=== PATIENT | female | born 1960 | race Two or more races ===

== ENCOUNTER → 2017-05-05 | Outpatient (CLI) | payer BC ==
[~2017-05-05] MED LIST: ACET500C
== END | disposition home or self-care (01) ==
LOC: LAB 11:04
PROVIDERS: ATTEND Obstetrics & Gynecology
DX: R19.00 Intra-abdominal and pelvic swelling, mass and lump, unspecified site (principal)
CPT/HCPCS: 86304; 87086

== ENCOUNTER 2020-09-24 12:53 | Day surgery (SDC) | payer BC ==
[~2020-09-24] VITALS: Ht 162.6 cm; Wt 77.1 kg
[~2020-09-24 12:53] MED LIST changes: -ACET500C; +ATOR20TA50 PO; +CHOL20007 PO; +MULTCAP45 PO; +VITA400T4 PO; +VITA80009 PO
[2020-09-24] MEDS ORDERED: ceFAZolin 1GM/50ML 100 ML IV ONE (13:06)
[2020-09-24] MEDS ORDERED: LIDOCAINE 1%-Mpf/Epinephrine 1:200,000 ONE (15:25)
[2020-09-24] MEDS ORDERED: BUPIVACAINE 0.25% INJ 50ML VIAL ONE (15:25)
[2020-09-24] MEDS ORDERED: NEOSTIGMINE 1 MG/ML INJ (10mg/10ML VIAL) IV ONE (15:29)
[2020-09-24] MEDS ORDERED: GLYCOPYRROLATE 0.2 MG/ML 1ML VIAL IV ONE (15:29)
[2020-09-24] MEDS ORDERED: ROCURONIUM 10MG/ML 10ML VIAL IV ONE (15:29)
[2020-09-24] MEDS ORDERED: fentaNYL CITRATE 100 MCG/2 ML VL ONE (15:32)
[2020-09-24] MEDS ORDERED: MIDAZOLAM HCL 2MG/2ML 2ml VIAL (1mg/ml) ONE (15:32)
[2020-09-24] MEDS ORDERED: MEPERIDINE HCL (50 MG/ML) 1 ML VIAL ONE (15:32)
[2020-09-24] MEDS ORDERED: ONDANSETRON HCL 4 MG/2 ML VIAL ONE (16:02)
[2020-09-24] MEDS ORDERED: DexAMETHasone SOD PHOS 10MG/1ML VIAL INJ ONE (16:02)
[2020-09-24] MEDS ORDERED: PROPOFOL 10 MG/ML 20 ML IV ONE (16:02)
[2020-09-24] MEDS ORDERED: ePHEDrine SULFATE 50 MG/ML AMP IV PRN (16:15)
[2020-09-24] MEDS ORDERED: METOCLOPRAMIDE HCL 5MG/ml INJ 2ml VIAL IV PRN (16:15)
[2020-09-24] MEDS ORDERED: MORPHINE SULFATE 4 MG/ML SYR/VIAL IV PRN (16:15)
[2020-09-24] MEDS ORDERED: MIDAZOLAM HCL 2MG/2ML 2ml VIAL (1mg/ml) IV PRN (16:15)
[2020-09-24] MEDS ORDERED: ACCU-CHEK COMFORT CURVE STRIP VI ONE (16:15)
[2020-09-24] MEDS ORDERED: LABETALOL HCL 5 MG/ML 4ML SYRINGE IV PRN (16:15)
[2020-09-24] MEDS ORDERED: ONDANSETRON HCL 4 MG/2 ML VIAL IV PRN (16:15)
[2020-09-24] MEDS: HYDROmorphone HCL 2 MG/ML VL IV PRN ×2 (17:12→17:24)
[2020-09-24 17:25] VITALS: BP 136/80
== END 2020-09-24 17:55 | disposition home or self-care (01) ==
LOC: SUR 12:53 → UNDOADMIN 12:53 → OVERFLOW 12:53 → EDSTATUS 15:00 → SUR 17:55 → UNDODISIN 17:55
PROVIDERS: ATTEND Obstetrics & Gynecology
DX: N95.8 Other specified menopausal and perimenopausal disorders (principal); K44.9 Diaphragmatic hernia without obstruction or gangrene; E78.00 Pure hypercholesterolemia, unspecified; E11.9 Type 2 diabetes mellitus without complications; E03.9 Hypothyroidism, unspecified; I10 Essential (primary) hypertension; Z68.29 Body mass index [BMI] 29.0-29.9, adult; Z20.822 Contact with and (suspected) exposure to COVID-19; Z98.890 Other specified postprocedural states; Z79.82 Long term (current) use of aspirin; Z79.899 Other long term (current) drug therapy; Z88.6 Allergy status to analgesic agent
CPT/HCPCS: 58661; 86850; 86900; 86901; 88305; J0690; J1100; J1170; J2001; J2175; J2250; J2405; J2704; J3010; J3490; U0003; G0378

== ENCOUNTER 2024-01-14 15:23 | Inpatient (IN) | payer OTHER ==
[~2024-01-14] VITALS: Ht 162.6 cm; Wt 80.5 kg
[2024-01-14 21:00] VITALS: BP 131/78; PULSE 80; RESP 18; TEMP 98.2; O2SAT 94
[2024-01-14 21:47] LABS: Basophils # (auto) 0 10 ^3/uL (0-0.2); Basophils % (auto) 0.5 % (0.0-2.0); Eosinophils # (auto) 0.1 10 ^3/uL (0-0.8); Hematocrit 42.9 % (36.0-46.0); Hemoglobin 14.4 g/dL (12.2-16.2); Lymphocytes # (auto) 2.8 10 ^3/uL (0.4-5.4); Lymphocytes % (auto) 33.1 % (10.0-50.0); Mean Corpuscular Hemoglobin 31.6 pg (28.0-32.0); Mean Corpuscular Hgb Conc. 33.6 g/dL (32.0-36.0); Monocytes # (auto) 0.6 10 ^3/uL (0-1.3); Monocytes % (auto) 7.5 % (0.0-12.0); Neutrophils # (auto) 4.9 10 ^3/uL (1.6-8.6); Neutrophils % (auto) 57.9 % (37.0-80.0); Nucleated Red Blood Cells % 0.2 %; Red Blood Cells 4.57 10^6/uL (4.0-5.20); Red Cell Distribution Width 13.5 % (11.8-14.3); White Blood Cell 8.4 10^3/uL (4.4-10.8)
[2024-01-14 21:57] VITALS: BP 121/78; PULSE 80; RESP 18; TEMP 98.2; O2SAT 94
[2024-01-14 22:02] LABS: Alanine Aminotransferase 16 U/L (7-40); Albumin 3.9 g/dL (3.2-4.8); Alkaline Phosphatase 59 U/L (46-116); Anion Gap 4 (5-15); Aspartate Aminotransferase 12 U/L (13-40); BUN/Creatinine Ratio 12.8 (10.0-20.0); Bilirubin, Total 0.4 mg/dL (0.2-1.0); Blood Urea Nitrogen 10 mg/dL (9-23); Calcium 8.7 mg/dL (8.7-10.4); Carbon Dioxide 29 mmol/L (20-30); Chloride 108 mmol/L (98-107); Glucose 83 mg/dL (74-106); Potassium 3.7 mmol/L (3.5-5.1); Sodium 141 mmol/L (136-145); Total Protein 6.1 g/dL (5.7-8.2)
[2024-01-14] MEDS ORDERED: ATOR-507 PO (22:23)
[2024-01-14] MEDS ORDERED: SUCR1TAB31 OR (22:23)
[2024-01-14] MEDS ORDERED: PANT1INJ3 IV (22:23)
[2024-01-14] MEDS ORDERED: LEVO50TA7 PO (22:23)
[2024-01-14] MEDS ORDERED: ATOR40TA52 PO (22:23)
[2024-01-14] MEDS: PNEUMOCOCCAL VACC POLYS 25 MCG/0.5 ML VIAL IM ONE (22:30)
[2024-01-15] VITALS (10 sets, daily range): BP systolic 123–142; BP diastolic 64–85; PULSE 60–83; RESP 15–22; TEMP 97.9–99; O2SAT 92–100
[2024-01-15] MEDS ORDERED: DOCUSATE SOD 100 MG CAP PO PRN (00:45)
[2024-01-15] MEDS ORDERED: ONDANSETRON HCL 4 MG/2 ML VIAL IV PRN (00:45)
[2024-01-15] MEDS ORDERED: MECLIZINE HCL 25 MG TAB PO PRN (00:45)
[2024-01-15] MEDS ORDERED: HYDROcodone-ACET 5/325MG TAB PO PRN (00:45)
[2024-01-15] MEDS ORDERED: MORPHINE SULFATE INJ 2 MG/ml SYRG IV PRN (00:45)
[2024-01-15] MEDS ORDERED: ACETAMINOPHEN 325 MG TAB PO PRN (00:45)
[2024-01-15] MEDS ORDERED: hydrALAZINE HCL 20 MG/ML VL IV PRN (00:45)
[2024-01-15] MEDS ORDERED: NITROGLYCERIN 0.4 MG SL TAB SL PRN (00:45)
[2024-01-15] MEDS: LEVOTHYROXINE SODIUM 50 MCG TAB PO SCH (05:29)
[2024-01-15] MEDS: SUCRALFATE 1 GM TAB PO SCH (05:29)
[2024-01-15] MEDS: SODIUM CHLOR 0.9% PF (SALINE LOCK) 10ML VIAL/SYR IV SCH (05:30)
[2024-01-15 06:31] LABS: Basophils # (auto) 0 10 ^3/uL (0-0.2); Basophils % (auto) 0.3 % (0.0-2.0); Eosinophils # (auto) 0.1 10 ^3/uL (0-0.8); Eosinophils % (auto) 1.6 % (0.0-7.0); Hematocrit 42.7 % (36.0-46.0); Hemoglobin 14.3 g/dL (12.2-16.2); Lymphocytes # (auto) 2.5 10 ^3/uL (0.4-5.4); Lymphocytes % (auto) 36.9 % (10.0-50.0); Mean Corpuscular Hgb Conc. 33.6 g/dL (32.0-36.0); Mean Corpuscular Volume 95.1 fL (80.0-100.0); Monocytes # (auto) 0.5 10 ^3/uL (0-1.3); Monocytes % (auto) 6.8 % (0.0-12.0); Neutrophils # (auto) 3.6 10 ^3/uL (1.6-8.6); Neutrophils % (auto) 54.4 % (37.0-80.0); Red Blood Cells 4.49 10^6/uL (4.0-5.20); Red Cell Distribution Width 13.6 % (11.8-14.3); White Blood Cell 6.7 10^3/uL (4.4-10.8)
[2024-01-15 06:48] LABS: Alanine Aminotransferase 17 U/L (7-40); Albumin 3.9 g/dL (3.2-4.8); Alkaline Phosphatase 57 U/L (46-116); Anion Gap 3 (5-15); Aspartate Aminotransferase 12 U/L (13-40); BUN/Creatinine Ratio 12.3 (10.0-20.0); Blood Urea Nitrogen 10 mg/dL (9-23); Calcium 8.8 mg/dL (8.7-10.4); Carbon Dioxide 30 mmol/L (20-30); Chloride 107 mmol/L (98-107); Glucose 90 mg/dL (74-106); Potassium 3.5 mmol/L (3.5-5.1); Sodium 140 mmol/L (136-145)
[2024-01-15 06:49] LABS: Bilirubin, Total 0.6 mg/dL (0.2-1.0)
[2024-01-15 07:27] LABS: Urine Bacteria FEW /hpf (None Seen); Urine Blood Negative /uL (Negative); Urine Budding Yeast OCCASIONAL /hpf (None Seen); Urine Clarity Clear (Clear); Urine Color Light-Yellow (Yellow); Urine Mucus FEW (None Seen); Urine Protein, UAD Negative (Negative); Urine Specific Gravity 1.025 (1.001-1.035); Urine Urobilinogen Normal (Negative); Urine WBC 3 /hpf (0 - 5); Urine pH 6.5 (5.0-9.0)
[2024-01-15] MEDS: CLOPIDOGREL BISULFATE 75 MG TAB PO SCH (09:05)
[2024-01-15] MEDS: PANTOPRAZOLE 40 MG/10 ML VIAL INJ IV SCH (09:05)
[2024-01-15 14:48] LABS: INR 1.04 (0.9-1.15)
[2024-01-15] MEDS: LIDOCAINE VISCOUS 2% 15ML UD ONE (16:14)
[2024-01-15] MEDS: fentaNYL CITRATE 100 MCG/2 ML VL ONE (16:14)
[2024-01-15] MEDS: diphenhdrAMINE HCL 50 MG/1 ML VL ONE (16:14)
[2024-01-15] MEDS: MIDAZOLAM HCL 5 MG/ML-1ML VIAL ONE (16:14)
[2024-01-15] MEDS ORDERED: SODIUM CHLORIDE LOCK 10 ML ONE (16:48)
[2024-01-15] MEDS: PANTOPRAZOLE 40 MG TAB PO SCH (17:30)
[2024-01-15] MEDS: ATORVASTATIN 20 MG TAB PO SCH (20:50)
[2024-01-16 01:00] VITALS: BP 128/64; PULSE 71; RESP 20; TEMP 98.3; O2SAT 93
[2024-01-16 05:00] VITALS: BP 122/70; PULSE 63; RESP 20; TEMP 97.9; O2SAT 96
[2024-01-16 06:43] LABS: Basophils # (auto) 0 10 ^3/uL (0-0.2); Basophils % (auto) 0.3 % (0.0-2.0); Eosinophils # (auto) 0.1 10 ^3/uL (0-0.8); Eosinophils % (auto) 1.1 % (0.0-7.0); Hematocrit 42.2 % (36.0-46.0); Hemoglobin 14.2 g/dL (12.2-16.2); Lymphocytes # (auto) 2.6 10 ^3/uL (0.4-5.4); Lymphocytes % (auto) 29.4 % (10.0-50.0); Mean Corpuscular Hemoglobin 31.9 pg (28.0-32.0); Mean Corpuscular Hgb Conc. 33.6 g/dL (32.0-36.0); Monocytes # (auto) 0.6 10 ^3/uL (0-1.3); Monocytes % (auto) 6.7 % (0.0-12.0); Neutrophils # (auto) 5.6 10 ^3/uL (1.6-8.6); Neutrophils % (auto) 62.5 % (37.0-80.0); Nucleated Red Blood Cells % 0.1 %; Red Blood Cells 4.45 10^6/uL (4.0-5.20); Red Cell Distribution Width 13.7 % (11.8-14.3)
[2024-01-16 06:57] LABS: Alanine Aminotransferase 10 U/L (7-40); Albumin 3.7 g/dL (3.2-4.8); Alkaline Phosphatase 55 U/L (46-116); Anion Gap 2 (5-15); Aspartate Aminotransferase 13 U/L (13-40); BUN/Creatinine Ratio 18.5 (10.0-20.0); Bilirubin, Total 0.5 mg/dL (0.2-1.0); Blood Urea Nitrogen 15 mg/dL (9-23); Carbon Dioxide 30 mmol/L (20-30); Chloride 108 mmol/L (98-107); Glucose 83 mg/dL (74-106); Potassium 3.6 mmol/L (3.5-5.1); Sodium 140 mmol/L (136-145)
[2024-01-16 06:58] LABS: Total Protein 5.7 g/dL (5.7-8.2)
[2024-01-16 08:30] VITALS: PULSE 60; PULSE 66; RESP 16; O2SAT 96
[2024-01-16 08:58] VITALS: BP 120/74; PULSE 63; RESP 18; TEMP 97.9; O2SAT 92
[2024-01-16] MEDS ORDERED: PANT40T PO (10:55)
[2024-01-16] MEDS ORDERED: SUCR1TAB PO (10:55)
[2024-01-16] MEDS ORDERED: ZOFR4T PO (10:55)
[2024-01-16 12:47] VITALS: BP 125/78; PULSE 73; RESP 18; TEMP 98.4; O2SAT 92
== END 2024-01-16 15:00 | disposition home or self-care (01) | DRG 392 ==
LOC: EDUNIT# → TELE-WESTW 20:30
PROVIDERS: ADMIT Internal Medicine; ATTEND Internal Medicine
PROC: 0DB68ZX Excision of Stomach, Via Natural or Artificial Opening Endoscopic, Diagnostic (ICD-10-PCS; 2024-01-15)
PROC: 0DB58ZX Excision of Esophagus, Via Natural or Artificial Opening Endoscopic, Diagnostic (ICD-10-PCS; 2024-01-15)
PROC: 0DB48ZX Excision of Esophagogastric Junction, Via Natural or Artificial Opening Endoscopic, Diagnostic (ICD-10-PCS; 2024-01-15)
PROC: 0DB98ZX Excision of Duodenum, Via Natural or Artificial Opening Endoscopic, Diagnostic (ICD-10-PCS; principal; 2024-01-15 16:10)
DX: K29.70 Gastritis, unspecified, without bleeding (principal); K22.10 Ulcer of esophagus without bleeding; B96.81 Helicobacter pylori [H. pylori] as the cause of diseases classified elsewhere; E78.5 Hyperlipidemia, unspecified; K21.9 Gastro-esophageal reflux disease without esophagitis; I49.5 Sick sinus syndrome; I10 Essential (primary) hypertension; K44.9 Diaphragmatic hernia without obstruction or gangrene; K59.00 Constipation, unspecified; M81.0 Age-related osteoporosis without current pathological fracture; Z90.721 Acquired absence of ovaries, unilateral; Z90.710 Acquired absence of both cervix and uterus; Z88.6 Allergy status to analgesic agent; Z95.0 Presence of cardiac pacemaker; Z90.49 Acquired absence of other specified parts of digestive tract
CPT/HCPCS: 36415; 43239; 80053; 81001; 85025; 85610; G0378; J2250; J2470

== ENCOUNTER 2025-04-06 17:52 | Inpatient (IN) | payer MEDICARE, OTHER ==
[~2025-04-06] VITALS: Ht 154.9 cm; Wt 76.3 kg
[~2025-04-06 17:52] MED LIST changes: +ATOR-507 PO; -ATOR20TA50 PO; +LEVO50TA7 PO; -MULTCAP45 PO; +PANT1INJ3 IV; +PANT40T PO; +SUCR1TAB PO; +SUCR1TAB31 OR; -VITA400T4 PO; -VITA80009 PO; +ZOFR4T PO
--- NOTE | 2025-04-06 18:31 | ED.PDOC ---
Adolfo. trauma (HPI) HPI Comments HPI: Past Medical History: Hypertension, GERD, sick sinus syndrome, hypothyroidism Surgical history: Fundoplication, pacemaker, right shoulder surgery Personal and Social History: Unremarkable REVIEW OF SYSTEMS: PHYSICAL EXAM: tolbert: fall on outstretched arms b/l HPI: Poor Historian. 65-year-old female brought in ambulance from status post mechanical fall from a standing position. Patient fell forward on bilateral outstretched arms. She complains of right shoulder right arm pain. No head injury denies any pain anywhere else in her body. Patient is on blood thinners. Patient states having some mild numbness tingling in her right upper extremity. Patient received fentanyl 100 mics IM in route. Vital signs were slightly hypertensive EMS states likely due to pain. Patient appears in moderate to severe pain. Past Medical History: Past Surgical History: REVIEW OF SYSTEMS: CONSTITUTIONAL: Denies acute: fever, diaphoresis, chills, generalized weakness. HEAD: Denies acute: headache, photophobia Eyes: Denies acute: Double vision, vision loss, eye pain, eye discharge. EARS: Denies acute: tinnitus, hearing loss, ear discharge, ear pain, THROAT: Denies acute: sore throat, swelling, difficulty swallowing , pain with swallowing, change in voice. NECK: Denies acute: neck pain, neck swelling, stiff neck. HEART: Denies acute : chest pain, palpitations, LUNGS: Denies acute: SOB, wheezing, cough, hemoptysis ABDOMEN: Denies acute: abdominal pain, Nausea, Vomiting, diarrhea, melena , hematemesis, hematochezia SKIN: Denies acute: rash, redness, lesions, itchiness. EXTREMITIES: Denies acute: calf pain, numbness, tingling, weakness, Denies acute: Low back pain. Neuro: Denies acute: focal neurological deficit, motor or sensory focal neurological deficit, tremors, seizure like activity, confusion, dizziness, change in mental status, loss of bowel or bladder function, cauda equina like symptoms. : Denies acute: dysuria, hematuria, flank pain, increase in urinary frequency. PSYCH: Denies acute: hallucination, suicidal ideation, homicidal ideation. FEMALE: Denies acute: abnormal vaginal bleeding, foul odor, unusual discharge. PHYSICAL EXAM: General: ----moderate----acute distress, awake and alert. Head: normocephalic, atraumatic. No raccoon's eyes, no littlejohn sign. Neck: supple, trachea is midline, no swelling. Throat: Normal phonation. Eyes:, no erythema, no purulent discharge, no proptosis, no icterus. Heart: regular rate, regular rhythm, no significant murmur appreciated. Lungs: no apparent respiratory distress, Able to speak in full sentences. No wheezing, no rhonchi, no crackles. No stridors Clear to auscultation bilaterally. Abdomen: non tender to palpation, non distended, soft, no guarding, no rebound, + bowel sounds. Neuro: Awake, Alert, oriented to name, self, situation, follows commands GCS=15. Speech is normal. Skin: no petechia, no purpura, no cyanosis, non-pale, not jaundice. Lower extremities: --no - Pitting edema no deformity, no focal swelling, no calf TTP. Makes eye contact. moves all four extremities. Face: no apparent facial droop. Palpation of the posterior cervical spine reveals no tenderness palpation, no step-off, no erythema, no swelling. Pelvic rocking does not produce any pain. No littlejohn sign, no raccoon sign, Evaluation of the area of pain: Right upper extremity decreased range of motion secondary to right shoulder right humerus pain. Patient is neurovascularly intact in the affected extremity. Radial pulses palpable. Good semi driver muscle bilaterally. Sensation and motor are present Bilateral. No apparent swelling or deformity in the area of pain in the humerus shoulder region on the right side. Minimal left shoulder pain on the left upper extremity. No nuchal rigidity, Kernig's sign, Brudzinski's sign, no meningeal signs. ED COURSE: DISCLAIMER: This medical document was created using an electronic medical record system with voice recognition software and computerized dictation system. Although this document has been carefully reviewed, there might still be some phonetic and typographical errors. Occasional wrong-word or "sound-alike" substitutions may have occurred due to the inherent limitations of voice recognition software. These areas are purely typographical due to imperfections of the software programs and do not reflect any compromise in the patient's medical care. Please read the chart carefully and recognize, using context, where these substitutions have occurred. Chief Complaint: Fall Injury Time Seen by MD: 18:29 Primary Care Provider: SIDDHARTHA Reviewed notes: Tomato Paste Maker Notes, Allergies Allergies: Uncoded Allergies: Baby Aspirin (Allergy, Unknown, 09/20/20) Home Meds Active Scripts Ondansetron Odt 4MG Tab (ZOFRAN PO) 4 Mg Tb, 4 MG PO Q4HP PRN for 7 Days, #35 TAB ODT TAB-DISSOLVE IN MOUTH, THEN SWALLOW Prov:MOISES POLLOCK RESIDENT 01/16/24 Sucralfate (Sucralfate) 1 Gm Tab, 1 GM PO QIDACHS for 30 Days, #60 TAB Prov:MOISES POLLOCK RESIDENT 01/16/24 Pantoprazole Sodium Sesquihydr (Pantoprazole Sodium) 40 Mg Tab, 40 MG PO BID@0600,1700 for 30 Days, #30 TAB Prov:MOISES POLLOCK RESIDENT 01/16/24 Reported Medications Sucralfate (CARAFATE) 1 Gm Tab, 1 GM OR, TAB 01/14/24 Pantoprazole Sodium (PANTOPRAZOLE SODIUM) 40 Mg Inj, 40 MG IV, INJ 01/14/24 Atorvastatin Calcium (Lipitor) 40 Mg Tab, 1 TAB PO QPM, #90 TAB 1 Refill 01/14/24 Levothyroxine Sodium (Levothyroxine Sodium) 50 Mcg Tab, 50 MCG PO QAM for 30 Days, MCG 01/14/24 Cholecalciferol (VITAMIN D3) 2,000 Unit Tab, 5000 UNIT PO DAILY, #1 TAB 09/20/20 Information Source: Patient, Emergency Med Personnel Mode of Arrival: EMS Past Medical History PAST MEDICAL HISTORY: HTN, Thyroid Surgical History: Pacemaker Surgical History (Other): Fundoplication PHARMACY HELPER History: No Pertinent PHARMACY HELPER History Family History Family History: Reviewed,noncontributory to illness Social History Smoker: Non-Smoker Alcohol: Denies ETOH Use Drugs: Denies Drug Use Lives In: Home Was a procedure done? Was a procedure done?: No Differential Diagnosis Multiple Trauma: Closed Head Injury, Cardiac Injury, Fractures, Intraabdominal Injury, Pneumothorax, Cerebral Contusion, Pulmonary Contusion, Spine Injury, Tracheal Injury, Urological Injury, Vascular Injury, Abrasions, Contusion, Foreign Body, Hematoma, Laceration, Encephalopathy Neck Injury: Cervical Muscle Spasm, Cervical Sprain, Cervical Strain, Cervical Fracture, Spinal Cord Injury X-Ray, Labs, Meds, VS Vital Signs Date Time Temp Pulse Resp B/P (MAP) Pulse Ox O2 Delivery O2 Flow Rate FiO2 04/06/25 19:37 87 16 166/81 04/06/25 19:30 98.3 83 21 164/85 (111) 99 98.3 04/06/25 19:08 80 16 170/85 04/06/25 18:58 97.7 81 19 197/97 (130) 96 97.7 04/06/25 18:57 81 18 95 Nasal Cannula* 2 28 04/06/25 18:45 198/97 04/06/25 18:00 98.0 108 20 180/100 100 98.0 Current Medications Medications (Trade) Dose Ordered Sig/Pat Route Start Time Stop Time Status Last Admin Fentanyl Citrate 100 mcg ONCE ONCE IV 04/06/25 18:30 04/06/25 18:31 DC 04/06/25 18:45 Hydromorphone HCl (Dilaudid Injection) 0.5 mg ONCE ONCE IV 04/06/25 19:15 04/06/25 19:16 DC 04/06/25 19:08 Ondansetron HCl (Zofran) 4 mg ONCE ONCE IV 04/06/25 19:15 04/06/25 19:16 DC 04/06/25 19:10 [place] [address] Ph: [phone] DIAGNOSTIC IMAGING Diagnostic Imaging Report : [id number] Signed PATIENT: SELWYN TOLBERT ACCT: [id number] UNIT: [id number] : 1960 LOC: ER ROOM / BED: / AGE / SEX: 65 / F ADM STATUS: REG ER SERVICE 15 ORDERING PHYSICIAN: OLGA RINCON DO PROCEDURE(s): RHUM - R HUMERUS XRAY REASON: RIGHT ARM PAIN ORDER NUMBER(s): [id number], ACCESSION NUMBER(s): [id number] EXAM: XY R HUMERUS XRAY INDICATION: RIGHT ARM PAIN TECHNIQUE: 2 views of the right humerus COMPARISON: XY BONE DENSITY APPENDICULAR on DOS: 10/09/23 FINDINGS/IMPRESSION: Proximal humeral diaphyseal, significantly displaced surgical neck fracture with intra-articular extension. 1 shaft width medial displacement of the distal fragment. Diffusely decreased bone mineral density. ATED BY: HI MAHAN MD DICTATED DATE/TIME: 04/06/251901 SIGNED BY: HI MAHAN MD SIGNED DATE/TIME: 04/06/251901 CC: [place] [address] Ph: [phone] DIAGNOSTIC IMAGING Diagnostic Imaging Report : [id number] Signed PATIENT: SELWYN TOLBERT ACCT: [id number] UNIT: [id number] : 1960 LOC: ER ROOM / BED: / AGE / SEX: 65 / F ADM STATUS: REG ER SERVICE 19 ORDERING PHYSICIAN: OLGA RINCON DO PROCEDURE(s): RSHD2 - R SHOULDER 2+ VIEW XRAY REASON: fall ORDER NUMBER(s): [id number], ACCESSION NUMBER(s): [id number] EXAM: XY R SHOULDER 2+ VIEW XRAY INDICATION: Pain fall TECHNIQUE: 3 views of the right shoulder COMPARISON: None available at the time of dictation. FINDINGS/IMPRESSION: Significantly displaced comminuted surgical neck fracture of the right proximal humerus with 1 shaft width medial displacement of the distal humeral fragment. Suspected small right glenohumeral joint effusion. Possible right lateral 7th rib fracture. ATED BY: HI MAHAN MD DICTATED DATE/TIME: 04/06/251901 SIGNED BY: HI MAHAN MD SIGNED DATE/TIME: 04/06/251901 CC: Time of 1ST Reevaluation: 18:30 Reevaluation 1ST: Unchanged Patient Education/Counseling: Diagnosis, Treatment Family Education/Counseling: Diagnosis, Treatment Comments MDM: patient presented with the above HPI.---right upper extremity fall injury---workup was initiated. patient was found with the above mentioned diagnosis. the following medications were ordered: please refer to order lists of meds and tests obtained by myself Dr. Rincon. Patient ED course and VS have been stabilized. Patient has been reassessed in the ED and remained in a stable condition. Pertinent incidental findings were discussed with the patient and/or family. Patient/family voices understanding and is agreeable with plan. Patient has been observed in the ED adequate length of time to insure improvement/stability. Escalation of care considered: Consideration of escalation to observation or admission Patient requiring around the clock IV pain medications for pain control. Patient is neurovascularly intact. Orthopedic consultation was ordered. Patient was ADMITTED to the medicine team for further evaluation and treatment of their presentation. All the reports of any imaging studies that were ordered by myself were reviewed by myself. Departure 1 Departure Time of Disposition: 00:04 Impression: Primary Impression: Comminuted right humeral fracture Disposition: ADMITTED INPATIENT Admit to: Tele Condition: Guarded Discharged With: Self Critical Care Note Critical Care Time?: No Stability Stability form required: No I personally scribed for OLGA RINCON DO ([email or web address]) on 04/06/25 at 18:30. Electronically submitted by Torres Gastelum ([email or web address]). I personally scribed for OLGA RINCON DO ([email or web address]) on 04/06/25 at 19:55. Electronically submitted by Torres Gastelum ([email or web address]). OLGA RINCON DO Apr 06, 2025 18:30
[2025-04-06] MEDS: fentaNYL CITRATE 100 MCG/2 ML VL IV ONE (18:45)
[2025-04-06 18:57] VITALS: PULSE 81; RESP 18; O2SAT 95
--- NOTE | 2025-04-06 19:04 | DVH ---
EXAM: XY R HUMERUS XRAY INDICATION: RIGHT ARM PAIN TECHNIQUE: 2 views of the right humerus COMPARISON: XY BONE DENSITY APPENDICULAR on DOS: 10/09/23 FINDINGS/IMPRESSION: Proximal humeral diaphyseal, significantly displaced surgical neck fracture with intra-articular extension. 1 shaft width medial displacement of the distal fragment. Diffusely decreased bone mineral density.
--- NOTE | 2025-04-06 19:05 | DVH ---
EXAM: XY R SHOULDER 2+ VIEW XRAY INDICATION: Pain fall TECHNIQUE: 3 views of the right shoulder COMPARISON: None available at the time of dictation. FINDINGS/IMPRESSION: Significantly displaced comminuted surgical neck fracture of the right proximal humerus with 1 shaft width medial displacement of the distal humeral fragment. Suspected small right glenohumeral joint effusion. Possible right lateral 7th rib fracture.
[2025-04-06] MEDS: HYDROmorphone HCL 2 MG/ML VL/or syr IV ONE (19:08)
[2025-04-06] MEDS: ONDANSETRON HCL 4 MG/2 ML VIAL IV ONE (19:10)
--- NOTE | 2025-04-06 21:04 | DVH ---
EXAMINATION: XY R RIB XRAY INDICATION: fall COMPARISON: XY R HUMERUS XRAY on DOS: 04/06/25, XY R SHOULDER 2+ VIEW XRAY on DOS: 04/06/25, XY CHEST TWO VIEWS ROUTINE on DOS: 09/16/23 TECHNIQUE: Frontal view of the chest and 1-view of the right ribs history FINDINGS: No focal consolidation, pleural effusion or significant pneumothorax. Normal cardiomediastinal silhouette. No displaced right rib fracture. Comminuted proximal humeral fracture. IMPRESSION: No acute cardiopulmonary disease. Comminuted proximal humeral fracture.
[2025-04-06 22:56] LABS: Hematocrit 42.6 % (36.0-46.0); Hemoglobin 14.2 g/dL (12.2-16.2); Mean Corpuscular Hemoglobin 31.4 pg (28.0-32.0); Mean Corpuscular Volume 94.2 fL (80.0-100.0); Nucleated Red Blood Cells % 0.0 %
[2025-04-06] MEDS: SODIUM CHLORIDE 0.9% 1,000 ML IV ONE (23:00)
[2025-04-06] MEDS: MORPHINE SULFATE INJ 2 MG/ml SYRG IV PRN (23:05)
[2025-04-06] MEDS: ONDANSETRON HCL 4 MG/2 ML VIAL IV PRN (23:07)
--- NOTE | 2025-04-06 23:10 | DVHHPRES ---
History of Present Illness Resident Creating Document: AKSHAT CHIANG History of Present Illness Patient is a 65-year-old female with past medical history of TIA, HTN, HLD, sick sinus syndrome, hyperthyroidism and GERD, presented to [facility] ED from status post mechanical fall from a standing position. The patient fell forward onto bilateral outstretched arms today at approximately 5:00 PM while at home. She complains of pain in the right shoulder and right arm. There is no reported head injury, and she denies pain elsewhere in her body. She reports mild numbness and tingling in the right upper extremity. En route, the patient received 100 mcg of intramuscular fentanyl. The patient does not use home oxygen. However, after receiving pain medication, she became hypoxic and was placed on 2 liters of oxygen via nasal cannula. On evaluation in the ED, patient is afebrile, blood pressure is 171/84 mmHg. Humerus X-ray, shoulder X-ray shows Right proximal humerus fracture. The patient was placed NPO, started on pain management and IV fluids. Patient is admitted for further evaluation and management. Past Medical History TIA, HTN, HLD, sick sinus syndrome, hyperthyroidism, GERD Past Surgical History Pacemaker, fundoplication Family History: None Smoke: No ALCOHOL: none Drugs: None Lives: with Family Review of Systems Review of Systems Eyes: No Pain, No Vision change, No Conjunctivae inflammation, No Eyelid inflammation, No Other, No Redness ENT: No Ear pain, No Ear discharge, No Nose pain, No Nose discharge, No Nose congestion, No Mouth pain, No Mouth swelling, No Throat pain, No Throat swelling, No Other Cardiovascular: No Chest Pain, No Palpitations, No Orthopnea, No Paroxysmal No Dyspnea, No Edema, No Lt Headedness, No Other Respiratory: No Cough, No Dry, No Shortness of breath, No SOB with exertion, No Wheezing, No Hemoptysis, No Pleuritic Pain, No Sputum, No Other Gastrointestinal: No Nausea, No Vomiting, No Abdominal Pain, No Diarrhea, No Constipation, No Melena, No Hematochezia, No Other Genitourinary: No Dysuria, No Frequency, No Incontinence, No Hematuria, No Retention, No Other Musculoskeletal: No other, neck pain, shoulder pain, arm pain, No back pain, No hand pain, No leg pain, No foot pain Skin: No Rash, No Lesions, No Jaundice, No Bruising, No Other Allergies: Uncoded Allergies: Baby Aspirin (Allergy, Unknown, 09/20/20) Medications Current Medications Medications Dose Ordered Sig/Pat Route Start Time Stop Time Status Last Admin Dose Admin Ondansetron HCl 4 mg Q4HP PRN IV 04/06/25 22:15 04/06/25 23:07 4 MG Morphine Sulfate 2 mg Q4HPRN PRN IV 04/06/25 22:15 04/06/25 23:05 2 MG Exam Vital Signs Vital Signs Date Time Temp Pulse Resp B/P (MAP) Pulse Ox O2 Delivery O2 Flow Rate FiO2 04/06/25 23:05 84 16 164/85 04/06/25 19:30 98.3 99 98.3 04/06/25 18:57 Nasal Cannula* 2 28 Exam General Appearance: Moderate to severe acute distress, awake and alert. Head Exam: Normal inspection Neck Exam: Normal inspection. Non-tender. Normal alignment Pulmonary/Respiratory: Chest non-tender. Clear bilateral breath sounds, no crackles, no wheezing. Cardiovascular/Chest: Regular rate and rhythm. No murmurs. No JVD. Peripheral Pulses: 2+ Radial (R). 2+ Radial (L). 2+ Pedal (R). 2+ Pedal (L) Abdominal Exam: Normal bowel sounds. Soft. normal abdomen, no visible veins, Nontender. No hepatospenomegaly. No masses Ankle Exam: Negative ankle edema Upper extremities: minimal left shoulder pain on the left upper extremity. Right Shoulder: Significant tenderness and limited range of motion. Right Upper Arm: Pain with palpation and movement. Decreased strength, intact sensory. Radial pulses palpable Lower extremities: Negative lower extremity edema Neuro/Mental Status: A&O x4. Coherent. Thoughts/Psych: Normal thought pattern. Appropriate mood and affect. Good judgement and insight Skin Exam: Normal inspection. Normal color. Warm. Dry Labs/Xrays Labs Test 04/06/25 22:44 Range/Units White Blood Count 17.6 H 4.4-10.8 10^3/uL Red Blood Count 4.53 4.0-5.20 10^6/uL Hemoglobin 14.2 12.2-16.2 g/dL Hematocrit 42.6 36.0-46.0 % Mean Corpuscular Volume 94.2 80.0-100.0 fL Mean Corpuscular Hemoglobin 31.4 28.0-32.0 pg Mean Corpuscular Hemoglobin Concent 33.4 32.0-36.0 g/dL Red Cell Distribution Width 13.6 11.8-14.3 % Platelet Count 306 140-450 10^3/uL Mean Platelet Volume 8.2 6.9-10.8 fL Neutrophils (%) (Auto) 89.2 H 37.0-80.0 % Lymphocytes (%) (Auto) 7.0 L 10.0-50.0 % Monocytes (%) (Auto) 3.5 0.0-12.0 % Eosinophils (%) (Auto) 0.0 0.0-7.0 % Basophils (%) (Auto) 0.3 0.0-2.0 % Neutrophils # (Auto) 15.7 H 1.6-8.6 10 ^3/uL Lymphocytes # (Auto) 1.2 0.4-5.4 10 ^3/uL Monocytes # (Auto) 0.6 0-1.3 10 ^3/uL Eosinophils # (Auto) 0 0-0.8 10 ^3/uL Basophils # (Auto) 0.1 0-0.2 10 ^3/uL Nucleated Red Blood Cells 0.0 % SEPSIS Sepsis Screen Date sepsis recognized/suspect: Apr 06, 2025 Time Sepsis recognized/suspect: 1801 Recent Procedure: No On Antibiotic Therapy: No Respiratory Rate >20: No Heart Rate >90: Yes Temp<36 C (96.8 F) or >38.3 C: No SBP <90 or MAP <65 mmHG: No New Acute Mental Status Change: No Is the patient on CPAP, BIPAP,: No Physician Orders R Humerus Xray (04/06/25 18:16) R Shoulder 2+ View Xray (04/06/25 18:20) R Rib Xray (04/06/25 19:41) Apply Sling (04/06/25 19:41) * Orthopedic Consult (04/06/25 20:19) Admit (04/06/25 22:11) Allergies (04/06/25 22:11) Code Status (04/06/25 22:11) Sodium Chloride 0.9% (04/06/25 22:15) Oxygen Per Hour (04/06/25 22:11) Ondansetron Hcl (Zofran) (04/06/25 22:15) Comprehensive Metabolic Panel (04/06/25 22:11) Npo (Nothing By Mouth) Diet (04/07/25 Breakfast) Condition: Serious (04/06/25 22:11) Morphine Sulfate Injection (04/06/25 22:15) Oxygen By Nasal Cannula (04/06/25 22:11) Stat Ekg For Chest Pain (04/06/25 22:11) Notify Md Of Changes From Base (04/06/25 22:11) Inside Sales Advisor For 24 Hours (04/06/25 22:11) Emergency Dysrhythmia Protocol (04/06/25 22:11) Rhythm Strips Once Every Shift (04/06/25 22:11) Electrocardigram (04/06/25 22:11) Urinalysis (04/06/25 22:11) Thyroid Stimulating Hormone (04/06/25 22:11) Type And Screen (04/06/25 22:11) PTPTT (04/06/25 22:30) Magnesium (04/06/25 22:11) Vital Signs Date Time Temp Pulse Resp B/P (MAP) Pulse Ox O2 Delivery O2 Flow Rate FiO2 04/06/25 23:05 84 16 164/85 04/06/25 19:37 87 16 166/81 04/06/25 19:30 98.3 83 21 164/85 (111) 99 98.3 04/06/25 19:08 80 16 170/85 04/06/25 18:58 97.7 81 19 197/97 (130) 96 97.7 04/06/25 18:57 81 18 95 Nasal Cannula* 2 28 04/06/25 18:45 198/97 04/06/25 18:00 98.0 108 20 180/100 100 98.0 Laboratory Tests Test 04/06/25 22:44 White Blood Count 17.6 10^3/uL (4.4-10.8) H Medications Medications Dose Ordered Sig/Pat Route Start Time Stop Time Status Last Admin Dose Admin Fentanyl Citrate 100 mcg ONCE ONCE IV 04/06/25 18:30 04/06/25 18:31 DC 04/06/25 18:45 100 MCG Hydromorphone HCl 0.5 mg ONCE ONCE IV 04/06/25 19:15 04/06/25 19:16 DC 04/06/25 19:08 0.5 MG Morphine Sulfate 2 mg Q4HPRN PRN IV 04/06/25 22:15 04/06/25 23:05 2 MG Ondansetron HCl 4 mg ONCE ONCE IV 04/06/25 19:15 04/06/25 19:16 DC 04/06/25 19:10 4 MG Ondansetron HCl 4 mg Q4HP PRN IV 04/06/25 22:15 04/06/25 23:07 4 MG Sodium Chloride 1,000 ml @ 110 mls/hr Q9H6M ONCE IV 04/06/25 22:15 04/07/25 07:20 04/06/25 23:00 110 MLS/HR Assessment/Plan Assessment/Plan Right proximal humerus fracture Suspected small right glenohumeral joint effusion Possible right lateral 7th rib fracture Ribs X-Ray: No acute cardiopulmonary disease. Comminuted proximal humeral fracture. Shoulder X-Ray: Significantly displaced comminuted surgical neck fracture of the right proximal humerus with 1 shaft width medial displacement of the distal humeral fragment. Suspected small right glenohumeral joint effusion. Possible right lateral 7th rib fracture. Humerus X-Ray: Proximal humeral diaphyseal, significantly displaced surgical neck fracture with intra-articular extension. 1 shaft width medial displacement of the distal fragment. Diffusely decreased bone mineral density. Orthopedic consult NPO Apply Sling Sodium Chloride 0.9% IV 110 MLS/HR Zofran 4 MG IV q4h prn pain management with Morphine 2 MG IV q4h prn UA EKG Obesity, BMI 30.4 kg/m2 I have counseled the patient on healthy lifestyle modifications Diet: NPO Goals of care: Full code, discussed for >30 minutes on 04/06/25 Plan discussed with patient Plan discussed with Dr. Sharp Plan discussed with: Patient My Orders Orders - AKSHAT CHIANG Procedure Category Date Status Time Admit ADMIT 04/06/25 Transmitted 22:11 Allergies DORA 04/06/25 In Process 22:11 Code Status CODE 04/06/25 Transmitted 22:11 Sodium Chloride 0.9% PHA 04/06/25 In Process 22:15 Oxygen Per Hour RT 04/06/25 Transmitted 22:11 Ondansetron Hcl PHA 04/06/25 In Process (Zofran) 22:15 Comprehensive LAB 04/06/25 In Process Metabolic Panel 22:11 Npo (Nothing By DIET 04/07/25 Transmitted Mouth) Diet Breakfast Condition: Serious DORA 04/06/25 In Process 22:11 Morphine Sulfate PHA 04/06/25 In Process Injection 22:15 Oxygen By Nasal RT 04/06/25 Transmitted Cannula 22:11 Stat Ekg For Chest DORA 04/06/25 In Process Pain 22:11 Notify Md Of Changes DORA 04/06/25 In Process From Base 22:11 Inside Sales Advisor For DORA 04/06/25 In Process 24 Hours 22:11 Emergency Dysrhythmia DORA 04/06/25 In Process Protocol 22:11 Rhythm Strips Once DORA 04/06/25 In Process Every Shift 22:11 Electrocardigram EKG 04/06/25 Logged 22:11 Urinalysis LAB 04/06/25 Logged 22:11 Thyroid Stimulating LAB 04/06/25 In Process Hormone 22:11 Type And Screen BBK 04/06/25 In Process 22:11 PTPTT LAB 04/06/25 In Process 22:30 Magnesium LAB 04/06/25 In Process 22:11 Date of Service: Apr 06, 2025 Billing Provider: REFUGIO SHARP MD Common Visit Codes: 35435-[id number] INP/OBS CARE (HIGH) Secondary Visit Codes: [id number]-[id number] CARE PLAN 30 MINUTES AKSHAT CHIANG RESIDENT Apr 06, 2025 23:10
[2025-04-06 23:12] LABS: Alanine Aminotransferase 34 U/L (7-40); Alkaline Phosphatase 91 U/L (46-116); Anion Gap 14 (5-15); BUN/Creatinine Ratio 20.8 (10.0-20.0); Blood Urea Nitrogen 15 mg/dL (9-23); Calcium 9.0 mg/dL (8.7-10.4); Carbon Dioxide 22 mmol/L (20-31); Chloride 105 mmol/L (98-107); INR 0.97 (0.9-1.15); Magnesium 1.9 mg/dL (1.6-2.6); Partial Thromboplastin Time 25.0 SEC (24.5-34.5); Potassium 3.7 mmol/L (3.5-5.1); Prothrombin Time 10.3 sec (9.3-11.8); Sodium 141 mmol/L (136-145); Total Protein 7.0 g/dL (5.7-8.2)
[2025-04-06 23:13] LABS: Albumin 4.2 g/dL (3.2-4.8)
[2025-04-06 23:16] LABS: Bilirubin, Total 0.3 mg/dL (0.2-1.0); Glucose 143 mg/dL (74-106)
[2025-04-07 08:30] VITALS: BP 176/73; PULSE 94; RESP 20; TEMP 98.1; O2SAT 99
--- NOTE | 2025-04-07 09:00 | DVH ---
INDICATION: preoperative assessment TECHNIQUE: Frontal view of the chest. COMPARISON: NM CARDIOLITE MULTIPLE on DOS: 06/28/24, XY CHEST TWO VIEWS ROUTINE on DOS: 09/16/23, US ECHO 2D MODE CARDIAC DOP on DOS: 09/08/23 FINDINGS: Left-sided pacemaker.. The heart and mediastinal contours are grossly unremarkable. There is no evidence of pleural disease. The lungs are clear. Comminuted and displaced fracture proximal right humeral neck. IMPRESSION: 1. No evidence of acute disease. 2. Comminuted and displaced fracture proximal right humeral neck
[2025-04-07] MEDS: HYDROmorphone HCL 2 MG/ML VL/or syr IV ONE (09:30)
--- NOTE | 2025-04-07 09:34 | DVH ---
CLINICAL HISTORY: Status post mechanical fall, Head trauma TECHNIQUE: Helical scanning was performed of the head from the skull base to the vertex. Multiplanar reconstructions were performed. This exam was performed according to our departmental dose optimization program. Up-to-date CT equipment and radiation dose reduction techniques are utilized as appropriate. CTDI 54 DLP 1077 COMPARISON: CT HEAD WITHOUT CONTRAST on DOS: 04/04/23 FINDINGS: There is no evidence for acute intracranial hemorrhage, acute ischemic changes, mass, mass effect, or extra-axial fluid collection. There is no hydrocephalus or midline shift. There is no effacement of the cerebral sulci and basal subarachnoid cisterns. The reeves-white matter differentiation is well maintained. The imaged paranasal sinuses are clear. IMPRESSION: NO ACUTE INTRACRANIAL ABNORMALITY SEEN.
[2025-04-07 11:00] LABS: Opiate Scree,Urine Pos (NEGATIVE)
[2025-04-07 11:04] LABS: Urine Budding Yeast OCCASIONAL /hpf (None Seen); Urine Protein, UAD TRACE (Negative)
[2025-04-07 11:06] LABS: Amphetamine Screen, Urine Neg (NEGATIVE); Barbiturate Scree,Urine Neg (NEGATIVE); Benzodiazephine Screen, Urine Neg (NEGATIVE); Cannabinoid Screen, Urine Neg (NEGATIVE); Cocaine Screen, Urine Neg (NEGATIVE); Phencyclidine Screen, Urine Neg (NEGATIVE)
[2025-04-07 13:09] VITALS: BP 149/87; PULSE 89; RESP 18; TEMP 98.4; O2SAT 95
[2025-04-07] MEDS ORDERED: EZET-10 PO (15:10)
[2025-04-07] MEDS ORDERED: MORPHINE SULFATE 4 MG/ML SYR/VIAL IV PRN (16:15)
[2025-04-07] MEDS: HYDROmorphone HCL 2 MG/ML VL/or syr IV PRN (16:37)
[2025-04-07 17:00] VITALS: BP 149/91; PULSE 80; RESP 18; TEMP 99; O2SAT 96
[2025-04-07 17:25] VITALS: PULSE 80; RESP 18; O2SAT 96
--- NOTE | 2025-04-07 17:31 | DVHINCON2 ---
Date of service: Apr 07, 2025 Reason for Consultation Left proximal humerus fracture History of Present Illness Mrs. Palacios is a 65-year-old female who was brought to the hospital two days ago after experiencing a mechanical fall. Patient reports that she was trying to get into her house when she slipped on her dog's bed causing her to fall and when she reached out to landed on her outstretched arm felt a loud pop and pain to her right shoulder and has been having difficulty moving her shoulder due to the pain. Patient also complains of pain to her left shoulder and elbow as well as pain to her right foot since the fall. Patient denied any head trauma, loss of consciousness, chest pain, shortness of breath, nausea, vomiting, fever, or chills. Past Medical History TIA, HTN, HLD, sick sinus syndrome, hyperthyroidism and GERD Past Surgical History Right shoulder rotator cuff repair Family History: FH: stomach cancer G8 MOTHER GI disorder grandfather Family History Noncontributory Social History Denies smoking, EtOH, or illicit substance abuse Allergies: Uncoded Allergies: Baby Aspirin (Allergy, Unknown, 09/20/20) Home Meds Active Scripts Ondansetron Odt 4MG Tab (ZOFRAN PO) 4 Mg Tb, 4 MG PO Q4HP PRN for 7 Days, #35 TAB ODT TAB-DISSOLVE IN MOUTH, THEN SWALLOW Prov:MOISES POLLOCK RESIDENT 01/16/24 Sucralfate (Sucralfate) 1 Gm Tab, 1 GM PO QIDACHS for 30 Days, #60 TAB Prov:MOISES POLLOCK RESIDENT 01/16/24 Pantoprazole Sodium Sesquihydr (Pantoprazole Sodium) 40 Mg Tab, 40 MG PO BID@0600,1700 for 30 Days, #30 TAB Prov:MOISES POLLOCK RESIDENT 01/16/24 Reported Medications Ezetimibe (Ezetimibe) 10 Mg Tab, 10 MG PO DAILY, TAB 04/07/25 Sucralfate (CARAFATE) 1 Gm Tab, 1 GM OR, TAB 01/14/24 Pantoprazole Sodium (PANTOPRAZOLE SODIUM) 40 Mg Inj, 40 MG IV, INJ 01/14/24 Atorvastatin Calcium (Lipitor) 40 Mg Tab, 1 TAB PO QPM, #90 TAB 1 Refill 01/14/24 Levothyroxine Sodium (Levothyroxine Sodium) 50 Mcg Tab, 50 MCG PO QAM for 30 Days, MCG 01/14/24 Cholecalciferol (VITAMIN D3) 2,000 Unit Tab, 5000 UNIT PO DAILY, #1 TAB 09/20/20 Current Medications Current Medications Medications (Trade) Dose Ordered Sig/Pat Route PRN Reason Start Time Stop Time Status Last Admin Ondansetron HCl (Zofran) 4 mg Q4HP PRN IV NAUSEA / VOMITING 04/06/25 22:15 04/07/25 16:07 Morphine Sulfate 2 mg Q4HPRN PRN IV SEVERE PAIN (7-10 PAIN SCALE) 04/06/25 22:15 04/07/25 16:00 DC 04/07/25 05:18 Morphine Sulfate 2 mg Q4HPRN PRN IV SEVERE PAIN (7-10 PAIN SCALE) 04/07/25 16:15 04/07/25 16:07 DC Hydromorphone HCl (Dilaudid Injection) 0.5 mg Q4HPRN PRN IV SEVERE PAIN (7-10 PAIN SCALE) 04/07/25 16:15 04/07/25 16:37 Baclofen (Liorisal Tablet) 10 mg Q8HP PRN PO FOR MUSCLE SPASM 04/07/25 16:15 Review of Systems 10 point review of systems negative except as per HPI Vital Signs Vital Signs Date Time Temp Pulse Resp B/P (MAP) Pulse Ox O2 Delivery O2 Flow Rate FiO2 04/07/25 16:37 80 18 149/91 04/07/25 13:09 98.4 95 98.4 04/06/25 18:57 Nasal Cannula* 2 28 Physical Exam General appearance: A&O x4 in no acute distress HEENT: Normal ENT inspection, pharynx normal, TMs normal Neck: Full range of motion, nontender, normal inspection Respiratory: Chest nontender, without accessory muscle use, no respiratory distress Cardiovascular: No edema, no JVD, normal peripheral pulses Gastrointestinal: Soft, nontender, no organomegaly. Musculoskeletal: Right shoulder range of motion grossly limited with pain on slight movement, mild distal edema, ecchymosis along the proximal humerus, tenderness to palpation along the proximal humerus, normal capillary refill and neurovascularly intact. Left shoulder and left elbow range of motion grossly limited with pain on slight movement, normal capillary refill and neurovascularly intact. Skin: Dry, normal color, warm Lymphatic: No adenopathy Labs/Diagnostic Data Labs Test 04/07/25 10:22 04/07/25 07:45 04/06/25 22:44 Range/Units Urine Color Yellow Yellow Urine Clarity Clear Clear Urine pH 7.0 5.0-9.0 Urine Specific [place] 1.030 1.001-1.035 Urine Protein Trace H Negative Urine Ketones Trace Negative Urine Blood Trace H Negative /uL Urine Nitrite Negative Negative Urine Bilirubin Negative Negative Urine Urobilinogen Normal Negative mg/dL Urine Leukocyte Esterase Negative Negative /uL Urine RBC 49 0 - 4 /hpf Urine Microscopic WBC 3 0-5 /HPF Urine Squamous Epithelial Cells Few <5 /hpf Urine Bacteria None seen None Seen /hpf Urine Mucus Few None Seen Urine Yeast (Budding) Occasional None Seen /hpf Urine Glucose Normal Normal mg/dL Urine Opiates Screen Pos NEGATIVE Urine Fentanyl Screen Pos NEGATIVE Urine Barbiturates Screen Neg NEGATIVE Urine Phencyclidine Screen Neg NEGATIVE Urine Amphetamines Screen Neg NEGATIVE Urine Benzodiazepines Screen Neg NEGATIVE Urine Cocaine Screen Neg NEGATIVE Urine Cannabinoids Screen Neg NEGATIVE Hemoglobin A1c 5.7 <5.7 % A1C Vitamin B12 Level 419 211-911 pg/mL Vitamin D 25-Hydroxy 77.0 30.0-100 ng/mL White Blood Count 17.6 H 4.4-10.8 10^3/uL Red Blood Count 4.53 4.0-5.20 10^6/uL Hemoglobin 14.2 12.2-16.2 g/dL Hematocrit 42.6 36.0-46.0 % Mean Corpuscular Volume 94.2 80.0-100.0 fL Mean Corpuscular Hemoglobin 31.4 28.0-32.0 pg Mean Corpuscular Hemoglobin Concent 33.4 32.0-36.0 g/dL Red Cell Distribution Width 13.6 11.8-14.3 % Platelet Count 306 140-450 10^3/uL Mean Platelet Volume 8.2 6.9-10.8 fL Neutrophils (%) (Auto) 89.2 H 37.0-80.0 % Lymphocytes (%) (Auto) 7.0 L 10.0-50.0 % Monocytes (%) (Auto) 3.5 0.0-12.0 % Eosinophils (%) (Auto) 0.0 0.0-7.0 % Basophils (%) (Auto) 0.3 0.0-2.0 % Neutrophils # (Auto) 15.7 H 1.6-8.6 10 ^3/uL Lymphocytes # (Auto) 1.2 0.4-5.4 10 ^3/uL Monocytes # (Auto) 0.6 0-1.3 10 ^3/uL Eosinophils # (Auto) 0 0-0.8 10 ^3/uL Basophils # (Auto) 0.1 0-0.2 10 ^3/uL Nucleated Red Blood Cells 0.0 % Prothrombin Time 10.3 9.3-11.8 sec Prothrombin Time INR 0.97 0.9-1.15 Activated Partial Thromboplast Time 25.0 24.5-34.5 SEC Sodium Level 141 136-145 mmol/L Potassium Level 3.7 3.5-5.1 mmol/L Chloride Level 105 98-107 mmol/L Carbon Dioxide Level 22 20-31 mmol/L Anion Gap 14 5-15 Blood Urea Nitrogen 15 9-23 mg/dL Creatinine 0.72 0.550-1.02 mg/dL Glomerular Filtration Rate Calc 92 >90 mL/min BUN/Creatinine Ratio 20.8 H 10.0-20.0 Serum Glucose 143 H 74-106 mg/dL Calcium Level 9.0 8.7-10.4 mg/dL Magnesium Level 1.9 1.6-2.6 mg/dL Total Bilirubin 0.3 0.2-1.0 mg/dL Aspartate Amino Transferase (AST) 35 13-40 U/L Alanine Aminotransferase (ALT) 34 7-40 U/L Alkaline Phosphatase 91 46-116 U/L Total Protein 7.0 5.7-8.2 g/dL Albumin 4.2 3.2-4.8 g/dL Thyroid Stimulating Hormone (TSH) 1.36 0.55-4.78 uIU/mL Right humerus x-ray reviewed and demonstrated: Proximal humeral diaphyseal, significantly displaced surgical neck fracture with intra-articular extension. 1 shaft width medial displacement of the distal fragment. Diffusely decreased bone mineral density. Assessment Right proximal humerus fracture Plan/Recommendation I had a very lengthy discussion with the patient and her daughter and after reviewing her x-rays and discussing her case with Dr. Baron we have recommended against any surgical intervention at this time and instead advised to continue with conservative treatment and place the patient in his shoulder immobilizer and advised her to remain nonweightbearing to her right shoulder for six weeks. Given the patient is also complaining of pain to her left shoulder as well as left elbow and right foot we will be ordering x-ray for each body part for further evaluation given her most recent fall. We will reconvene with the patient once the imaging studies have been completed to discuss results and determine the course of action. Patient understood and agreed. Thank you for allowing us to participate in the care of your patient. Plan discussed with: Patient, Daughter ERICLIANNADOMINGO RESENDIZ Apr 07, 2025 17:31
[2025-04-07] MEDS: BACLOFEN 10 MG TAB PO PRN (17:49)
[2025-04-07 20:00] VITALS: PULSE 86; RESP 18; O2SAT 98
[2025-04-07 21:00] VITALS: BP 148/87; PULSE 83; RESP 18; TEMP 99.3; O2SAT 98
--- NOTE | 2025-04-07 21:19 | DVHPNRES ---
Progress Note Date Seen: Apr 07, 2025 Resident Creating Document: PRISCILLA BLACKWOOD RESIDENT Has the PT tested + for MRSA If YES, has PT been informed?: No Medical Necessity Reason Pt with a Central, PICC or Fol: No Subjective Review of Systems Mrs. Palacios is a 65-year-old female, with past medical history of osteoporosis, TIA, hypertension, hyperlipidemia, sick sinus syndrome, hypothyroidism and GERD. The patient presented to [facility] via EMS with history of status post mechanical fall. The patient reports that she tripped and fell at her home when she was coming from outside through the garage, the patient fell face forward with bilateral outstretched arms landing on the floor hitting her head, right shoulder, right arm and left foot, she describe listening a loud "pop" on her right shoulder, presenting immediate excruciating pain 10/10 on her right shoulder and elbow, that she describes as sharp-like, continue, that aggravates with movement with no alleviating factors; Associated with numbness and tingling in the right upper extremity. EMS was call, on route to the hospital, the patient received 100 mcg of intramuscular fentanyl. The patient does not use home oxygen; however, after receiving this pain medication, she became hypoxic and was placed on 2 liters of oxygen via nasal cannula. On evaluation in the ED, patient was afebrile, blood pressure is 171/84 mmHg. Humerus X-ray, shoulder X- ray shows Right proximal humerus fracture. The patient was placed NPO, started on pain management and IV fluids. Patient was admitted for further evaluation and management. Past Medical History: Osteoporosis, TIA, HTN, HLD, sick sinus syndrome, hypothyroidism, GERD Past Surgical History: Pacemaker, gastric fundoplication. Family History: None Social History: Smoke: No ALCOHOL: none Drugs: None Lives: with [place] Hospital course: On 04/07/25, the patient was examined and evaluated at bedside, VS, labs and chart was reviewed. WBC are 17.6, UA and cultures were ordered. The patient reports she is still in pain 9/10, that is aggravates to 10/10 with movements. Orthopedic consult was placed, Dr. Baron recommends no surgical management at the moment. Patient will start soft mechanical diet due nausea. I have spoken with the patient's daughter and explain the diagnosis and plan, she is agree with current plan. I have address her questions and concerns. We will continue following this patient's progress. ROS Eyes: No Pain, No Vision change, No Conjunctivae inflammation, No Eyelid inflammation, No Other, No Redness ENT: No Ear pain, No Ear discharge, No Nose pain, No Nose discharge, No Nose congestion, No Mouth pain, No Mouth swelling, No Throat pain, No Throat swelling, No Other Cardiovascular: No Chest Pain, No Palpitations, No Orthopnea, No Paroxysmal No Dyspnea, No Edema, No Lt Headedness, No Other Respiratory: No Cough, No Dry, No Shortness of breath, No SOB with exertion, No Wheezing, No Hemoptysis, No Pleuritic Pain, No Sputum, No Other Gastrointestinal: No Nausea, No Vomiting, No Abdominal Pain, No Diarrhea, No Constipation, No Melena, No Hematochezia, No Other Genitourinary: No Dysuria, No Frequency, No Incontinence, No Hematuria, No Retention, No Other Musculoskeletal: No other, neck pain, shoulder pain, arm pain, No back pain, No hand pain, No leg pain, No foot pain Skin: No Rash, No Lesions, No Jaundice, No Bruising, No Other Allergies: Baby Aspirin (Allergy, Unknown, 09/20/20) Objective vital signs Vital Sign Date Time Temp Pulse Resp B/P (MAP) Pulse Ox O2 Delivery O2 Flow Rate FiO2 04/07/25 17:25 80 18 96 Nasal Cannula* 2 28 04/07/25 17:07 149/91 04/07/25 17:00 99.0 99.0 medications Current Medications Medications Dose Ordered Sig/Pat Route Start Time Stop Time Status Last Admin Dose Admin Ondansetron HCl 4 mg Q4HP PRN IV 04/06/25 22:15 04/07/25 16:07 4 MG Hydromorphone HCl 0.5 mg Q4HPRN PRN IV 04/07/25 16:15 04/07/25 16:37 0.5 MG Baclofen 10 mg Q8HP PRN PO 04/07/25 16:15 04/07/25 17:49 10 MG Examination General Appearance: Moderate acute distress due to pain, awake and alert. Head Exam: There is located swollen area over the left eyebrow, tender to the touch. Neck Exam: Normal inspection. Non-tender. Normal alignment, normal ROM. Pulmonary/Respiratory: Chest tender on the touch on the right. Clear bilateral breath sounds, no crackles, no wheezing, no crepitus, no fail chest. Cardiovascular/Chest: Regular rate and rhythm. No murmurs. No JVD. Peripheral Pulses: 2+ Radial (R). 2+ Radial (L). 2+ Pedal (R). 2+ Pedal (L) Abdominal Exam: Normal bowel sounds. Soft. normal abdomen, no visible veins, Nontender. No hepatospenomegaly. No masses Left Upper extremities: minimal left shoulder and elbow pain. Right Shoulder: Deformity on the right shoulder, with swelling, tenderness to light touch, ROM limited due to pain. Right Upper Arm: Pain with palpation and movement over the right elbow. Decreased strength, intact sensory. Radial pulses palpable. Right hand has no deformity, is no tender to the touch, normal range of motion limited due to pain in elbow and shoulder, radial pulse is palpable at level of the wrist, reduced strength Lower extremities: pain on the right foot, no deformities. Neuro/Mental Status: A&O x4. Coherent. Thoughts/Psych: Normal thought pattern. Appropriate mood and affect. Good judgement and insight laboratory and microbiology Laboratory Tests 04/06/25 22:44 Test 04/06/25 22:44 Range/Units Serum Glucose 143 H 74-106 mg/dL Problem List/Assessment/Plan Problem List/Assessment/Plan #Acute surgical neck fracture of the right proximal humerus #Possible acute small right glenohumeral joint effusion #Right lateral rib fracture Apply Sling Sodium Chloride 0.9% IV 110 MLS/HR Zofran 4 MG IV q4h prn Dilaudid 0.5mg IV q4h prn for severe pain. Orthopedics consult. #Possible bacteremia, rule out UTI WBC: 17.5 UA Blood culture Urine culture Ceftriaxone 1gr IV daily. NS IV fluids. #Chronic Osteoporosis Cholecalciferol 2,000 U per day #Chronic hypertensive heart disease with systolic/diastolic failure Amlodipine 10mg po daily #Chronic Hypothyroidism Levothyroxine 50mcg po daily #Chronic Dyslipidemia Ezetimibe 10mg po daily #Chronic GERD Pantoprazol 40mg po daily #Obesity, BMI 30.4 kg/m2 I have counseled the patient on healthy lifestyle modifications Diet: Mechanical soft. Goals of care discussed with the patient > 35 min. Discussed plan of care with Code status: Full code PCP: Mia and he is her cardiology as well. Plan discussed with: Patient and daughter, the patient agrees with the plan. Plan discussed with: Patient, Daughter My Orders My Orders Orders - PRISCILLA BLACKWOOD Procedure Category Date Status Time Head Without Contrast CT 04/07/25 Resulted 06:50 Hydromorphone PHA 04/07/25 In Process Injection (Dilaudid 16:15 Baclofen Tablet PHA 04/07/25 In Process (Liorisal Tablet) 16:15 Date of Service: Apr 07, 2025 Billing Provider: REFUGIO SHANKAR MD Common Visit Codes: [id number] INP/OBS CARE(HIGH) PRISCILLA BLACKWOOD RESIDENT Apr 07, 2025 21:19
[2025-04-07 21:51] LABS: HDL Cholesterol 49 mg/dL (40-59)
[2025-04-07 21:52] LABS: Cholesterol 252 mg/dL (< 200); Triglycerides 155 mg/dL (< 150)
[2025-04-08 05:00] VITALS: BP 147/78; PULSE 78; RESP 18; TEMP 98.8; O2SAT 93
[2025-04-08] MEDS: LEVOTHYROXINE SODIUM 50 MCG TAB PO SCH (05:24)
[2025-04-08] MEDS: PANTOPRAZOLE 40 MG TAB PO SCH (05:39)
[2025-04-08 06:22] LABS: COVID19 ANTIGEN SOFIA FIA NEGATIVE (NEGATIVE)
[2025-04-08 06:29] LABS: Hematocrit 38.5 % (36.0-46.0); Hemoglobin 13.1 g/dL (12.2-16.2); Mean Corpuscular Hemoglobin 31.7 pg (28.0-32.0); Mean Corpuscular Volume 93.4 fL (80.0-100.0); Nucleated Red Blood Cells % 0.0 %
--- NOTE | 2025-04-08 06:37 | DVH ---
CLINICAL INDICATION: left shoulder pain s/p fall TECHNIQUE: XY L SHOULDER 2+ VIEW XRAY Comparison: XY R HUMERUS XRAY on DOS: 04/06/25, XY R SHOULDER 2+ VIEW XRAY on DOS: 04/06/25 FINDINGS/IMPRESSION: : Minimally displaced fracture of the humeral head and greater tuberosity. Moderate degenerative changes of the glenohumeral and acromioclavicular joints. Soft tissues are unremarkable. Left anterior chest wall cardiac pacing device.
--- NOTE | 2025-04-08 06:38 | DVH ---
CLINICAL INDICATION: left elbow pain s/p fall TECHNIQUE: XY L ELBOW 2 VIEW XRAY Comparison: XY R HUMERUS XRAY on DOS: 04/06/25 FINDINGS/IMPRESSION: : There is no evidence of acute fracture or dislocation. Soft tissues are unremarkable.
--- NOTE | 2025-04-08 06:39 | DVH ---
CLINICAL INDICATION: right foot pain s/p fall TECHNIQUE: XY R FOOT 2 VIEW XRAY Comparison: None FINDINGS/IMPRESSION: : There is no evidence of acute fracture or dislocation. Soft tissues are unremarkable.
[2025-04-08 09:12] VITALS: BP 144/83; PULSE 84; RESP 18; TEMP 98.1; O2SAT 97
--- NOTE | 2025-04-08 11:13 | DVH ---
EXAM: CT CT L SHOULDER WO CONTRAST HISTORY: possible left shoulder fracture COMPARISON: None TECHNIQUE: Noncontrast axial CT images of the left shoulder were performed. Sagittal and coronal reformatted images were obtained. This CT exam was performed using one or more of the following dose reduction techniques: Automated exposure control, adjustment of the mA and/or kV according to patient size, or use of iterative reconstruction technique. CT Dose: CTDI volume is 47 mGy. Dose-length product is 06/01/2001 mGy*cm. FINDINGS: There is a nondisplaced fracture in the region of the greater tuberosity of the proximal right humerus. Articular surfaces of the glenohumeral joint are smooth. Articular surfaces of the acromioclavicular joint are smooth. Intact upper left ribs. IMPRESSION: 1. Nondisplaced fracture greater tuberosity proximal left humerus
--- NOTE | 2025-04-08 12:11 | DVHPN2 ---
Subjective Seen and examined at bedside, c/o of shoulder pain. Reviewed CT Shoulder. Patient fell on her cats. Changes from previous H/P or p: No Changes Objective Vitals Vital Signs Date Time Temp Pulse Resp B/P (MAP) Pulse Ox O2 Delivery O2 Flow Rate FiO2 04/08/25 09:34 84 18 144/83 04/08/25 09:12 98.1 97 98.1 04/07/25 20:00 Nasal Cannula* 2 28 Intake/Output Intake and Output 04/08/25 07:00 Intake Total 230 ml Output Total 1050 ml Balance -820 ml Intake Oral 230 ml Output Urine Total 1050 ml General Appearance: Alert, Oriented X3, Cooperative, No acute distress HEENT: Atraumatic Lungs: Other (Diminished b/l) Cardiovascular: Regular rate, Normal S1, Normal S2 Abdomen: Normal bowel sounds, Soft Rectal: Deferred Musculoskeletal: Other (Unable to left b/l shoulders) Psych/Mental Status: Mental status NL Medications Current Medications Medications Dose Ordered Sig/Pat Route Start Time Stop Time Status Last Admin Dose Admin Ondansetron HCl 4 mg Q4HP PRN IV 04/06/25 22:15 04/08/25 09:35 4 MG Hydromorphone HCl 0.5 mg Q4HPRN PRN IV 04/07/25 16:15 04/08/25 09:34 0.5 MG Baclofen 10 mg Q8HP PRN PO 04/07/25 16:15 04/07/25 17:49 10 MG Amlodipine Besylate 10 mg DAILY PO 04/08/25 10:00 Levothyroxine Sodium 50 mcg QAM@0600 PO 04/08/25 06:00 04/08/25 05:24 50 MCG EZETIMIBE 10 mg DAILY PO 04/08/25 10:00 Pantoprazole Sodium 40 mg DAILY@0600 PO 04/08/25 06:00 04/08/25 05:39 40 MG Cholecalciferol 2,000 unit DAILY PO 04/08/25 10:00 Ceftriaxone Sodium 50 ml @ 100 mls/hr DAILY@09 IV 04/08/25 09:00 Laboratory Results Laboratory Tests 04/06/25 22:44 04/08/25 06:02 Urinalysis Test 04/07/25 10:22 Urine Color Yellow (Yellow) Urine Clarity Clear (Clear) Urine pH 7.0 (5.0-9.0) Urine Specific [place] 1.030 (1.001-1.035) Urine Protein Trace (Negative) H Urine Ketones Trace (Negative) Urine Blood Trace /uL (Negative) H Urine Nitrite Negative (Negative) Urine Bilirubin Negative (Negative) Urine Urobilinogen Normal mg/dL (Negative) Urine Leukocyte Esterase Negative /uL (Negative) Urine RBC 49 /hpf (0 - 4) Urine Microscopic WBC 3 /HPF (0-5) Urine Squamous Epithelial Cells Few /hpf (<5) Urine Bacteria None seen /hpf (None Seen) Urine Mucus Few (None Seen) Urine Yeast (Budding) Occasional /hpf (None Urine Glucose Normal mg/dL (Normal) Microbiology Microbiology Date/Time Source Procedure Growth Status 04/07/25 10:22 Urine - Catheterized Urine Culture - Preliminary No growth Resulted Assessment/Plan Assessment/Plan # Neck fracture of the right proximal humerus #Possible acute small right glenohumeral joint effusion #Right lateral rib fracture #Left shoulder non displaced fracture Apply Sling Zofran 4 MG IV q4h prn Dilaudid 0.5mg IV q4h prn for severe pain. Orthopedics consult noted #Chronic Osteoporosis Cholecalciferol 2,000 U per day #Chronic hypertensive heart disease with systolic/diastolic failure Amlodipine 10mg po daily #Chronic Hypothyroidism Levothyroxine 50mcg po daily #Chronic Dyslipidemia Ezetimibe 10mg po daily #Chronic GERD Pantoprazol 40mg po daily #Obesity, BMI 30.4 kg/m2 I have counseled the patient on healthy lifestyle modifications Plan discussed with: Patient My Orders Orders - REFUGIO SHANKAR MD Procedure Category Date Status Time *Consult Dr. Esquivel CONS 04/08/25 Transmitted [place] 12:07 Incentive Spirometry ORDERS 04/08/25 Transmitted Q 1hr 12:07 Date of Service: Apr 08, 2025 Billing Provider: REFGUIO SHANKAR MD Common Visit Codes: [id number] INP/OBS CARE(MOD) REFUGIO SHANKAR MD Apr 08, 2025 12:11
[2025-04-08 12:29] VITALS: BP 159/75; PULSE 82; RESP 18; TEMP 98.6; O2SAT 95
[2025-04-08] MEDS: EZETIMIBE 10 MG TAB PO SCH (13:15)
[2025-04-08] MEDS: CHOLECALCIFEROL (VITD3) 1,000UNIT=25mCg TAB PO SCH (13:16)
--- NOTE | 2025-04-08 13:56 | DVHPN2 ---
Progress Note - Dictate Date Seen: Apr 08, 2025 Has the PT tested + for MRSA If YES, has PT been informed?: No Medical Necessity Reason Pt with a Central, PICC or Fol: No Subjective PT WITH MECHANICAL FALL WITH MULTIPLE FRACTURES HUMERAL FRACTURE DISLOCATION GLENOID FRACTURE RIB FRACTURE HX OF MOBID OBESITY HTN HYPERLIPIDEMIA SSS S/P DUAL CHAMBER PPI HYPOTHYROIDISM GERD HX OF CVA/TIA vital signs Vital Sign Date Time Temp Pulse Resp B/P (MAP) Pulse Ox O2 Delivery O2 Flow Rate FiO2 04/08/25 13:40 80 20 138/80 04/08/25 12:29 98.6 95 98.6 04/07/25 20:00 Nasal Cannula* 2 28 Total Intake and Output 04/07/25 04/07/25 04/08/25 15:00 23:00 07:00 Intake Total 230 ml Output Total 700 ml 350 ml Balance -700 ml -120 ml medications Current Medications Medications Dose Ordered Sig/Pat Route Start Time Stop Time Status Last Admin Dose Admin Ondansetron HCl 4 mg Q4HP PRN IV 04/06/25 22:15 04/08/25 13:39 4 MG Hydromorphone HCl 0.5 mg Q4HPRN PRN IV 04/07/25 16:15 04/08/25 13:40 0.5 MG Baclofen 10 mg Q8HP PRN PO 04/07/25 16:15 04/07/25 17:49 10 MG Amlodipine Besylate 10 mg DAILY PO 04/08/25 10:00 04/08/25 13:16 10 MG Levothyroxine Sodium 50 mcg QAM@0600 PO 04/08/25 06:00 04/08/25 05:24 50 MCG EZETIMIBE 10 mg DAILY PO 04/08/25 10:00 04/08/25 13:15 10 MG Pantoprazole Sodium 40 mg DAILY@0600 PO 04/08/25 06:00 04/08/25 05:39 40 MG Cholecalciferol 2,000 unit DAILY PO 04/08/25 10:00 04/08/25 13:16 2,000 UNIT Ceftriaxone Sodium 50 ml @ 100 mls/hr DAILY@09 IV 04/08/25 09:00 04/08/25 09:00 100 MLS/HR laboratory and microbiology Laboratory Tests 04/08/25 06:02 04/06/25 22:44 Test 04/06/25 22:44 Range/Units Serum Glucose 143 H 74-106 mg/dL Problem List MECHANICAL FALL WITH MULTIPLE FRACTURES HUMERAL FRACTURE DISLOCATION GLENOID FRACTURE RIB FRACTURE HX OF MOBID OBESITY HTN HYPERLIPIDEMIA SSS S/P DUAL CHAMBER PPI HYPOTHYROIDISM GERD HX OF CVA/TIA Assessment/Plan IF SURGERY IS CONTEMPLATED THAN CONSIDER AN ECHO POSITIVE FOR FENTANYL/ / OPIATES IF CONSERVATIVE MANAGEMENT NO CARDIAC W/U IS CURRENTLY INDICATED Plan discussed with: Patient THELMA AREVALO MD Apr 08, 2025 13:56
--- NOTE | 2025-04-08 16:40 | DVHPN2 ---
Progress Note - Dictate Date Seen: Apr 08, 2025 Has the PT tested + for MRSA If YES, has PT been informed?: No Medical Necessity Reason Pt with a Central, PICC or Fol: No Subjective No new complaints. Her main complaints are right and left shoulder pain though predominantly right side. She also had some complaints of left elbow and foot pain which have improved. vital signs Vital Sign Date Time Temp Pulse Resp B/P (MAP) Pulse Ox O2 Delivery O2 Flow Rate FiO2 04/08/25 13:40 80 20 138/80 04/08/25 12:29 98.6 95 98.6 04/07/25 20:00 Nasal Cannula* 2 28 Total Intake and Output 04/07/25 04/07/25 04/08/25 15:00 23:00 07:00 Intake Total 230 ml Output Total 700 ml 350 ml Balance -700 ml -120 ml medications Current Medications Medications Dose Ordered Sig/Pat Route Start Time Stop Time Status Last Admin Dose Admin Ondansetron HCl 4 mg Q4HP PRN IV 04/06/25 22:15 04/08/25 13:39 4 MG Hydromorphone HCl 0.5 mg Q4HPRN PRN IV 04/07/25 16:15 04/08/25 13:40 0.5 MG Baclofen 10 mg Q8HP PRN PO 04/07/25 16:15 04/07/25 17:49 10 MG Amlodipine Besylate 10 mg DAILY PO 04/08/25 10:00 04/08/25 13:16 10 MG Levothyroxine Sodium 50 mcg QAM@0600 PO 04/08/25 06:00 04/08/25 05:24 50 MCG EZETIMIBE 10 mg DAILY PO 04/08/25 10:00 04/08/25 13:15 10 MG Pantoprazole Sodium 40 mg DAILY@0600 PO 04/08/25 06:00 04/08/25 05:39 40 MG Cholecalciferol 2,000 unit DAILY PO 04/08/25 10:00 04/08/25 13:16 2,000 UNIT Ceftriaxone Sodium 50 ml @ 100 mls/hr DAILY@09 IV 04/08/25 09:00 04/08/25 09:00 100 MLS/HR objective Well-developed well-nourished female in no acute distress she is alert and oriented x4 Limited range of motion bilateral shoulders with tenderness to palpation proximally Distal neurovascularly intact bilaterally Review of her foot and elbow x-rays reveal no fractures or significant soft tissue swelling Review of x-ray and CT scan of her left shoulder reveals a nondisplaced greater tuberosity fracture laboratory and microbiology Laboratory Tests 04/08/25 06:02 04/06/25 22:44 Test 04/06/25 22:44 Range/Units Serum Glucose 143 H 74-106 mg/dL Assessment/Plan Right proximal humerus displaced fracture with retained hardware Left proximal humerus nondisplaced fracture Elbow and foot contusions Plan: Shoulder immobilizer right side General range of motion left shoulder with weight-bearing as restricted by pain No plans for inpatient surgery I advised her to follow up as an outpatient for further treatment once discharged in 1-2 weeks. Tod [phone] Plan discussed with: Patient, Other (Granddaughter) YESSICA ARIAS MD Apr 08, 2025 16:40
[2025-04-08 17:34] VITALS: BP 127/75; PULSE 80; RESP 18; TEMP 98.7; O2SAT 96
[2025-04-08 19:37] VITALS: PULSE 86; RESP 18; O2SAT 98
[2025-04-08 21:00] VITALS: BP 109/67; PULSE 84; RESP 18; TEMP 98.3; O2SAT 96
[2025-04-09] VITALS (8 sets, daily range): BP systolic 105–140; BP diastolic 60–84; PULSE 78–93; RESP 17–20; TEMP 98.2–99.3; O2SAT 91–98
--- NOTE | 2025-04-09 11:49 | DVHPN2 ---
Progress Note - Dictate Date Seen: Apr 09, 2025 Has the PT tested + for MRSA If YES, has PT been informed?: No Medical Necessity Reason Pt with a Central, PICC or Fol: No Subjective PT WITH MECHANICAL FALL WITH MULTIPLE FRACTURES HUMERAL FRACTURE DISLOCATION GLENOID FRACTURE RIB FRACTURE HX OF MOBID OBESITY HTN HYPERLIPIDEMIA SSS S/P DUAL CHAMBER PPI HYPOTHYROIDISM GERD HX OF CVA/TIA vital signs Vital Sign Date Time Temp Pulse Resp B/P (MAP) Pulse Ox O2 Delivery O2 Flow Rate FiO2 04/09/25 11:23 78 18 108/62 04/09/25 08:52 98.2 95 98.2 04/08/25 19:37 Nasal Cannula* 2 28 Total Intake and Output 04/08/25 04/08/25 04/09/25 15:00 23:00 07:00 Intake Total 120 ml 50 ml Output Total 400 ml 400 ml Balance -280 ml -350 ml medications Current Medications Medications Dose Ordered Sig/Pat Route Start Time Stop Time Status Last Admin Dose Admin Ondansetron HCl 4 mg Q4HP PRN IV 04/06/25 22:15 04/09/25 11:22 4 MG Hydromorphone HCl 0.5 mg Q4HPRN PRN IV 04/07/25 16:15 04/09/25 11:23 0.5 MG Baclofen 10 mg Q8HP PRN PO 04/07/25 16:15 04/09/25 09:02 10 MG Amlodipine Besylate 10 mg DAILY PO 04/08/25 10:00 04/08/25 13:16 10 MG Levothyroxine Sodium 50 mcg QAM@0600 PO 04/08/25 06:00 04/09/25 05:28 50 MCG EZETIMIBE 10 mg DAILY PO 04/08/25 10:00 04/09/25 09:02 10 MG Pantoprazole Sodium 40 mg DAILY@0600 PO 04/08/25 06:00 04/09/25 05:29 40 MG Cholecalciferol 2,000 unit DAILY PO 04/08/25 10:00 04/09/25 09:01 2,000 UNIT Ceftriaxone Sodium 50 ml @ 100 mls/hr DAILY@09 IV 04/08/25 09:00 04/09/25 09:00 100 MLS/HR laboratory and microbiology Laboratory Tests 04/08/25 06:02 04/06/25 22:44 Test 04/06/25 22:44 Range/Units Serum Glucose 143 H 74-106 mg/dL Problem List MECHANICAL FALL WITH MULTIPLE FRACTURES HUMERAL FRACTURE DISLOCATION GLENOID FRACTURE RIB FRACTURE HX OF MOBID OBESITY HTN HYPERLIPIDEMIA SSS S/P DUAL CHAMBER PPI HYPOTHYROIDISM GERD HX OF CVA/TIA Assessment/Plan IF SURGERY IS CONTEMPLATED THAN CONSIDER AN ECHO POSITIVE FOR FENTANYL/ / OPIATES IF CONSERVATIVE MANAGEMENT NO CARDIAC W/U IS CURRENTLY INDICATED Plan discussed with: Patient THELMA AREVALO MD Apr 09, 2025 11:49
--- NOTE | 2025-04-09 17:18 | DVHPNRES ---
Progress Note Date Seen: Apr 09, 2025 Resident Creating Document: PRISCILLA BLACKWOOD RESIDENT Has the PT tested + for MRSA If YES, has PT been informed?: No Medical Necessity Reason Pt with a Central, PICC or Fol: No Subjective Review of Systems Mrs. Palacios is a 65-year-old female, with past medical history of osteoporosis, TIA, hypertension, hyperlipidemia, sick sinus syndrome, hypothyroidism and GERD. The patient presented to [facility] via EMS with history of status post mechanical fall. The patient reports that she tripped and fell at her home when she was coming from outside through the garage, the patient fell face forward with bilateral outstretched arms landing on the floor hitting her head, right shoulder, right arm and left foot, she describe listening a loud "pop" on her right shoulder, presenting immediate excruciating pain 10/10 on her right shoulder and elbow, that she describes as sharp-like, continue, that aggravates with movement with no alleviating factors; Associated with numbness and tingling in the right upper extremity. EMS was call, on route to the hospital, the patient received 100 mcg of intramuscular fentanyl. The patient does not use home oxygen; however, after receiving this pain medication, she became hypoxic and was placed on 2 liters of oxygen via nasal cannula. On evaluation in the ED, patient was afebrile, blood pressure is 171/84 mmHg. Humerus X-ray, shoulder X- ray shows Right proximal humerus fracture. The patient was placed NPO, started on pain management and IV fluids. Patient was admitted for further evaluation and management. Past Medical History: Osteoporosis, TIA, HTN, HLD, sick sinus syndrome, hypothyroidism, GERD Past Surgical History: Pacemaker, gastric fundoplication. Family History: None Social History: Smoke: No ALCOHOL: none Drugs: None Lives: with [facility] course: On 04/07/25, the patient was examined and evaluated at bedside, VS, labs and chart was reviewed. WBC are 17.6, UA and cultures were ordered. The patient reports she is still in pain 9/10, that is aggravates to 10/10 with movements. Orthopedic consult was placed, Dr. Baron recommends no surgical management at the moment. Patient will start soft mechanical diet due nausea. I have spoken with the patient's daughter and explain the diagnosis and plan, she is agree with current plan. I have address her questions and concerns. We will continue following this patient's progress. On 04/08/25, Seen and examined at bedside, c/o of shoulder pain. Reviewed CT Shoulder. Patient fell on her cats. On 04/09/25, the patient was examined and evaluated at bedside, VS, labs and chart was reviewed. WBC are trending down, UA and cultures are negative at 24hrs. The patient reports she is still in pain 9/10, that is aggravates to 10/10 with movements. Pain management with Dilaudid IV and right arm sling. Orthopedic onboard, Dr. Baron recommends no surgical management at the moment. Patient will start soft mechanical diet due nausea. PT is onboard, evaluation for home-health was placed. The patient refuse SNF. I have spoken with the patient's daughter and explain the diagnosis and plan, she is agree with current plan. I have address her questions and concerns. We will continue following this patient's progress. ROS Eyes: No Pain, No Vision change, No Conjunctivae inflammation, No Eyelid inflammation, No Other, No Redness ENT: No Ear pain, No Ear discharge, No Nose pain, No Nose discharge, No Nose congestion, No Mouth pain, No Mouth swelling, No Throat pain, No Throat swelling, No Other Cardiovascular: No Chest Pain, No Palpitations, No Orthopnea, No Paroxysmal No Dyspnea, No Edema, No Lt Headedness, No Other Respiratory: No Cough, No Dry, No Shortness of breath, No SOB with exertion, No Wheezing, No Hemoptysis, No Pleuritic Pain, No Sputum, No Other Gastrointestinal: No Nausea, No Vomiting, No Abdominal Pain, No Diarrhea, No Constipation, No Melena, No Hematochezia, No Other Genitourinary: No Dysuria, No Frequency, No Incontinence, No Hematuria, No Retention, No Other Musculoskeletal: No other, neck pain due to arm sling, bilateral shoulder pain, arm pain, worse on the right side. Right foot pain. No back pain, No hand pain, No leg pain, Skin: No Rash, No Lesions, No Jaundice, No Bruising, No Other Allergies: Baby Aspirin (Allergy, Unknown, 09/20/20). Objective vital signs Vital Sign Date Time Temp Pulse Resp B/P (MAP) Pulse Ox O2 Delivery O2 Flow Rate FiO2 04/09/25 16:52 98.3 85 18 123/72 (89) 91 98.3 04/09/25 08:00 Nasal Cannula* 2 28 Total Intake and Output 04/08/25 04/08/25 04/09/25 15:00 23:00 07:00 Intake Total 120 ml 50 ml Output Total 400 ml 400 ml Balance -280 ml -350 ml medications Current Medications Medications Dose Ordered Sig/Pat Route Start Time Stop Time Status Last Admin Dose Admin Ondansetron HCl 4 mg Q4HP PRN IV 04/06/25 22:15 04/09/25 16:33 4 MG Hydromorphone HCl 0.5 mg Q4HPRN PRN IV 04/07/25 16:15 04/09/25 16:32 0.5 MG Baclofen 10 mg Q8HP PRN PO 04/07/25 16:15 04/09/25 09:02 10 MG Amlodipine Besylate 10 mg DAILY PO 04/08/25 10:00 04/08/25 13:16 10 MG Levothyroxine Sodium 50 mcg QAM@0600 PO 04/08/25 06:00 04/09/25 05:28 50 MCG EZETIMIBE 10 mg DAILY PO 04/08/25 10:00 04/09/25 09:02 10 MG Pantoprazole Sodium 40 mg DAILY@0600 PO 04/08/25 06:00 04/09/25 05:29 40 MG Cholecalciferol 2,000 unit DAILY PO 04/08/25 10:00 04/09/25 09:01 2,000 UNIT Ceftriaxone Sodium 50 ml @ 100 mls/hr DAILY@09 IV 04/08/25 09:00 04/09/25 09:00 100 MLS/HR Examination General Appearance: Mild distress due to pain, awake and alert. Head Exam: There is located swollen area over the left eyebrow, tender to the touch. Neck Exam: Normal inspection. Non-tender. Normal alignment, normal ROM. Pulmonary/Respiratory: Chest tender on the touch on the right. Clear bilateral breath sounds, no crackles, no wheezing, no crepitus, no fail chest. Cardiovascular/Chest: Regular rate and rhythm. No murmurs. No JVD. Peripheral Pulses: 2+ Radial (R). 2+ Radial (L). 2+ Pedal (R). 2+ Pedal (L) Abdominal Exam: Normal bowel sounds. Soft. normal abdomen, no visible veins, Nontender. No hepatospenomegaly. No masses Left Upper extremities: minimal left shoulder and elbow pain. Right Shoulder: Wearing a arm sling. There is a deformity on the right shoulder, with swelling, tenderness to light touch, ROM limited due to pain. Right Upper Arm: Pain with palpation and movement over the right elbow. Decreased strength, intact sensory. Radial pulses palpable. Right hand has no deformity, is no tender to the touch, normal range of motion limited due to pain in elbow and shoulder, radial pulse is palpable at level of the wrist, reduced strength Lower extremities: pain on the right foot, no deformities. Neuro/Mental Status: A&O x4. Coherent. Thoughts/Psych: Normal thought pattern. Appropriate mood and affect. laboratory and microbiology Laboratory Tests 04/08/25 06:02 04/06/25 22:44 Test 04/06/25 22:44 Range/Units Serum Glucose 143 H 74-106 mg/dL Microbiology Date/Time Source Procedure Growth Status 04/07/25 22:11 Blood Blood Culture - Preliminary NO GROWTH AFTER 24 HOURS OF INCUBATION. Resulted 04/07/25 10:22 Urine - Catheterized Urine Culture - Final Complete Problem List/Assessment/Plan Problem List/Assessment/Plan #Acute surgical neck fracture of the right proximal humerus #Possible acute small right glenohumeral joint effusion #Right lateral rib fracture #Acute Left Humerus no displaced fracture Continue Sling on right arm Sodium Chloride 0.9% IV 110 MLS/HR Zofran 4 MG IV q4h prn Dilaudid 0.5mg IV q4h prn for severe pain. Orthopedics consult: ongoing, (Dr. Garza) PT evaluation for Home-health #Possible acute bacteremia, with neutrophilia WBC: 17.5, trending down. 11.8 on 04/08/25 UA: negative Blood culture: negative at 24hrs Urine culture: negative at 24hrs Ceftriaxone 1gr IV daily. NS IV fluids. Stool WBC ordered. #Chronic Osteoporosis Cholecalciferol 2,000 U per day #Chronic hypertensive heart disease with systolic/diastolic failure Amlodipine 10mg po daily #Chronic Hypothyroidism Levothyroxine 50mcg po daily #Chronic Dyslipidemia Ezetimibe 10mg po daily #Chronic GERD Pantoprazol 40mg po daily #Obesity, BMI 30.4 kg/m2 I have counseled the patient on healthy lifestyle modifications >10 min Diet: Mechanical soft. Goals of care discussed with the patient > 35 min. Discussed plan of care with Code status: Full code PCP: Mia and he is her cardiology as well. Orthopedic: Dr. Garza Plan discussed with: Patient and daughter, the patient agrees with the plan. Plan discussed with: Patient My Orders My Orders Orders - PRISCILLA BLACKWOOD Procedure Category Date Status Time Stool Wbc LAB 04/09/25 Logged 09:19 * English [employer] Player CONS 04/09/25 Transmitted Consult Date of Service: Apr 09, 2025 Billing Provider: REFUGIO SHANKAR MD Common Visit Codes: [id number] INP/OBS CARE(HIGH) PRISCILLA BLACKWOOD RESIDENT Apr 09, 2025 17:18
[2025-04-09] MEDS: HYDROmorphone HCL 2 MG/ML VL/or syr IV ONE (22:55)
[2025-04-10 01:00] VITALS: BP 116/72; PULSE 81; RESP 18; TEMP 97.9; O2SAT 96
[2025-04-10 05:03] VITALS: BP 125/80; PULSE 81; RESP 18; TEMP 97.8; O2SAT 97
[2025-04-10 06:03] LABS: Hematocrit 36.5 % (36.0-46.0); Hemoglobin 12.9 g/dL (12.2-16.2); Mean Corpuscular Hemoglobin 32.7 pg (28.0-32.0); Mean Corpuscular Volume 93.0 fL (80.0-100.0); Nucleated Red Blood Cells % 0.0 %
[2025-04-10 08:00] VITALS: PULSE 82; RESP 16; O2SAT 97
[2025-04-10 09:00] VITALS: BP 119/67; PULSE 82; RESP 16; TEMP 98.4; O2SAT 97
[2025-04-10 12:52] VITALS: BP 123/80; PULSE 91; RESP 17; TEMP 98; O2SAT 97
--- NOTE | 2025-04-10 12:52 | DVHPN2 ---
Progress Note - Dictate Date Seen: Apr 10, 2025 Has the PT tested + for MRSA If YES, has PT been informed?: No Medical Necessity Reason Pt with a Central, PICC or Fol: No Subjective PT WITH MECHANICAL FALL WITH MULTIPLE FRACTURES HUMERAL FRACTURE DISLOCATION GLENOID FRACTURE RIB FRACTURE HX OF MOBID OBESITY HTN HYPERLIPIDEMIA SSS S/P DUAL CHAMBER PPI HYPOTHYROIDISM GERD HX OF CVA/TIA vital signs Vital Sign Date Time Temp Pulse Resp B/P (MAP) Pulse Ox O2 Delivery O2 Flow Rate FiO2 04/10/25 09:00 98.4 82 16 119/67 (84) 97 98.4 04/10/25 08:00 Nasal Cannula* 2 28 Total Intake and Output 04/09/25 04/09/25 04/10/25 15:00 23:00 07:00 Intake Total 400 ml 800 ml Output Total 700 ml 1000 ml Balance -300 ml -200 ml medications Current Medications Medications Dose Ordered Sig/Pat Route Start Time Stop Time Status Last Admin Dose Admin Ondansetron HCl 4 mg Q4HP PRN IV 04/06/25 22:15 04/10/25 04:08 4 MG Hydromorphone HCl 0.5 mg Q4HPRN PRN IV 04/07/25 16:15 04/10/25 08:14 0.5 MG Baclofen 10 mg Q8HP PRN PO 04/07/25 16:15 04/09/25 09:02 10 MG Amlodipine Besylate 10 mg DAILY PO 04/08/25 10:00 04/08/25 13:16 10 MG Levothyroxine Sodium 50 mcg QAM@0600 PO 04/08/25 06:00 04/10/25 06:00 50 MCG EZETIMIBE 10 mg DAILY PO 04/08/25 10:00 04/10/25 08:12 10 MG Pantoprazole Sodium 40 mg DAILY@0600 PO 04/08/25 06:00 04/09/25 05:29 40 MG Cholecalciferol 2,000 unit DAILY PO 04/08/25 10:00 04/10/25 08:13 2,000 UNIT Ceftriaxone Sodium 50 ml @ 100 mls/hr DAILY@09 IV 04/08/25 09:00 04/10/25 08:12 100 MLS/HR laboratory and microbiology Laboratory Tests 04/10/25 05:43 04/06/25 22:44 Test 04/06/25 22:44 Range/Units Serum Glucose 143 H 74-106 mg/dL Problem List MECHANICAL FALL WITH MULTIPLE FRACTURES HUMERAL FRACTURE DISLOCATION GLENOID FRACTURE RIB FRACTURE HX OF MOBID OBESITY HTN HYPERLIPIDEMIA SSS S/P DUAL CHAMBER PPI HYPOTHYROIDISM GERD HX OF CVA/TIA Assessment/Plan IF SURGERY IS CONTEMPLATED THAN CONSIDER AN ECHO POSITIVE FOR FENTANYL/ / OPIATES IF CONSERVATIVE MANAGEMENT NO CARDIAC W/U IS CURRENTLY INDICATED Plan discussed with: Patient Critical Care Time(min): 35 THELMA AREVALO MD Apr 10, 2025 12:52
[2025-04-10] MEDS ORDERED: TRAM-626 PO (14:16)
[2025-04-10] MEDS ORDERED: CEPH250C PO (14:16)
--- NOTE | 2025-04-10 16:25 | DVHDSRES ---
Discharge Summary Date of Admission Resident Creating Document: PRISCILLA BLACKWOOD RESIDENT Apr 06, 2025 at 22:11 Date of Discharge: Apr 10, 2025 Admitting Diagnosis #Acute surgical neck fracture of the right proximal humerus due to mechanical fall #Possible acute small right glenohumeral joint effusion due to mechanical fall #Acute right lateral rib fracture due to mechanical fall Wounds: No wounds present on admission. Labs/Diagnostic Data: Laboratory Results Test 04/10/25 05:43 04/07/25 10:22 04/07/25 07:45 04/07/25 04:30 White Blood Count 9.2 10^3/uL (4.4-10.8) Red Blood Count 3.93 10^6/uL (4.0-5.20) Hemoglobin 12.9 g/dL (12.2-16.2) Hematocrit 36.5 % (36.0-46.0) Mean Corpuscular Volume 93.0 fL (80.0-100.0) Mean Corpuscular Hemoglobin 32.7 pg (28.0-32.0) Mean Corpuscular Hemoglobin Concent 35.2 g/dL (32.0-36.0) Red Cell Distribution Width 13.0 % (11.8-14.3) Platelet Count 268 10^3/uL (140-450) Mean Platelet Volume 8.3 fL (6.9-10.8) Neutrophils (%) (Auto) 64.5 % (37.0-80.0) Lymphocytes (%) (Auto) 25.8 % (10.0-50.0) Monocytes (%) (Auto) 7.9 % (0.0-12.0) Eosinophils (%) (Auto) 1.2 % (0.0-7.0) Basophils (%) (Auto) 0.6 % (0.0-2.0) Neutrophils # (Auto) 5.9 10 ^3/uL (1.6-8.6) Lymphocytes # (Auto) 2.4 10 ^3/uL (0.4-5.4) Monocytes # (Auto) 0.7 10 ^3/uL (0-1.3) Eosinophils # (Auto) 0.1 10 ^3/uL (0-0.8) Basophils # (Auto) 0.1 10 ^3/uL (0-0.2) Nucleated Red Blood Cells 0.0 % Urine Color Yellow (Yellow) Urine Clarity Clear (Clear) Urine pH 7.0 (5.0-9.0) Urine Specific [place] 1.030 (1.001-1.035) Urine Protein Trace (Negative) Urine Ketones Trace (Negative) Urine Blood Trace /uL (Negative) Urine Nitrite Negative (Negative) Urine Bilirubin Negative (Negative) Urine Urobilinogen Normal mg/dL (Negative) Urine Leukocyte Esterase Negative /uL (Negative) Urine RBC 49 /hpf (0 - 4) Urine Microscopic WBC 3 /HPF (0-5) Urine Squamous Epithelial Cells Few /hpf (<5) Urine Bacteria None seen /hpf (None Seen) Urine Mucus Few (None Seen) Urine Yeast (Budding) Occasional /hpf (None Urine Glucose Normal mg/dL (Normal) Urine Opiates Screen Pos (NEGATIVE) Urine Fentanyl Screen Pos (NEGATIVE) Urine Barbiturates Screen Neg (NEGATIVE) Urine Phencyclidine Screen Neg (NEGATIVE) Urine Amphetamines Screen Neg (NEGATIVE) Urine Benzodiazepines Screen Neg (NEGATIVE) Urine Cocaine Screen Neg (NEGATIVE) Urine Cannabinoids Screen Neg (NEGATIVE) Hemoglobin A1c 5.7 % A1C (<5.7) Triglycerides Level 155 mg/dL (< 150) Cholesterol Level 252 mg/dL (< 200) LDL Cholesterol 181 mg/dL (< 100) HDL Cholesterol 49 mg/dL (40-59) Vitamin B12 Level 419 pg/mL (211-911) Vitamin D 25-Hydroxy 77.0 ng/mL (30.0-100) Influenza Type A Antigen Negative (Negative) Influenza Type B Antigen Negative (Negative) SARS-CoV-2 Antigen (Rapid) Negative (NEGATIVE) Test 04/06/25 22:44 Prothrombin Time 10.3 sec (9.3-11.8) Prothrombin Time INR 0.97 (0.9-1.15) Activated Partial Thromboplast Time 25.0 SEC (24.5-34.5) Sodium Level 141 mmol/L (136-145) Potassium Level 3.7 mmol/L (3.5-5.1) Chloride Level 105 mmol/L (98-107) Carbon Dioxide Level 22 mmol/L (20-31) Anion Gap 14 (5-15) Blood Urea Nitrogen 15 mg/dL (9-23) Creatinine 0.72 mg/dL (0.550-1.02) Glomerular Filtration Rate Calc 92 mL/min (>90) BUN/Creatinine Ratio 20.8 (10.0-20.0) Serum Glucose 143 mg/dL (74-106) Calcium Level 9.0 mg/dL (8.7-10.4) Magnesium Level 1.9 mg/dL (1.6-2.6) Total Bilirubin 0.3 mg/dL (0.2-1.0) Aspartate Amino Transferase (AST) 35 U/L (13-40) Alanine Aminotransferase (ALT) 34 U/L (7-40) Alkaline Phosphatase 91 U/L (46-116) Total Protein 7.0 g/dL (5.7-8.2) Albumin 4.2 g/dL (3.2-4.8) Thyroid Stimulating Hormone (TSH) 1.36 uIU/mL (0.55-4.78) Other Laboratory Tests 04/10/25 05:43 04/06/25 22:44 Brief Hx & Hospital Course: Mrs. Palacios is a 65-year-old female, with past medical history of osteoporosis, TIA, hypertension, hyperlipidemia, sick sinus syndrome, hypothyroidism and GERD. The patient presented [facility] via EMS with history of status post mechanical fall. The patient reports that she tripped and fell at her home when she was coming from outside through the garage, the patient fell face forward with bilateral outstretched arms landing on the floor hitting her head, right shoulder, right arm and left foot, she describe listening a loud "pop" on her right shoulder, presenting immediate excruciating pain 10/10 on her right shoulder and elbow, that she describes as sharp-like, continue, that aggravates with movement with no alleviating factors; Associated with numbness and tingling in the right upper extremity. EMS was call, on route to the hospital, the patient received 100 mcg of intramuscular fentanyl. The patient does not use home oxygen; however, after receiving this pain medication, she became hypoxic and was placed on 2 liters of oxygen via nasal cannula. On evaluation in the ED, patient was afebrile, blood pressure is 171/84 mmHg. Humerus X-ray, shoulder X- ray shows Right proximal humerus fracture. The patient was placed NPO, started on pain management and IV fluids. Patient was admitted for further evaluation and management. Past Medical History: Osteoporosis, TIA, HTN, HLD, sick sinus syndrome, hypothyroidism, GERD Past Surgical History: Pacemaker, gastric fundoplication. Family History: None Social History: Smoke: No ALCOHOL: none Drugs: None Lives: with Family Hospital course: On 04/07/25, the patient was examined and evaluated at bedside, VS, labs and chart was reviewed. WBC are 17.6, UA and cultures were ordered. The patient reports she is still in pain 9/10, that is aggravates to 10/10 with movements. Orthopedic consult was placed, Dr. Baron recommends no surgical management at the moment. Patient will start soft mechanical diet due nausea. I have spoken with the patient's daughter and explain the diagnosis and plan, she is agree with current plan. I have address her questions and concerns. We will continue following this patient's progress. On 04/08/25, Seen and examined at bedside, c/o of shoulder pain. Reviewed CT Shoulder. Patient fell on her cats. On 04/09/25, the patient was examined and evaluated at bedside, VS, labs and chart was reviewed. WBC are trending down, UA and blodd cultures are negative at 24hrs. The patient reports she is still in pain 9/10, that is aggravates to 10/10 with movements. Pain management with Dilaudid IV and right arm sling. Orthopedic onboard, Dr. Baron recommends no surgical management at the moment. Patient will start soft mechanical diet due nausea. PT is onboard, evaluation for home-health was placed. The patient refuse SN. Social service consult was placed for home-health. I have spoken with the patient's daughter and explain the diagnosis and plan, she is agree with current plan. I have address her questions and concerns. We will continue following this patient's progress. On 04/10/25, the patient was examined and evaluated at bedside, VS, labs and chart was reviewed. WBC are trending down, UA and blood cultures are negative at 72hrs. The patient reports she is still in pain 9/10, that is aggravates to 10/10 with movements. Orthopedic onboard, Dr. Baron recommends no surgical management at the moment. The patient is being discharge home with home health ([facility]) with PT and with a hospital-style bed for better comfort. The patient will follow up with PCP and Orthopedic within one week. ROS Eyes: No Pain, No Vision change, No Conjunctivae inflammation, No Eyelid inflammation, No Other, No Redness ENT: No Ear pain, No Ear discharge, No Nose pain, No Nose discharge, No Nose congestion, No Mouth pain, No Mouth swelling, No Throat pain, No Throat swelling, No Other Cardiovascular: No Chest Pain, No Palpitations, No Orthopnea, No Paroxysmal No Dyspnea, No Edema, No Lt Headedness, No Other Respiratory: No Cough, No Dry, No Shortness of breath, No SOB with exertion, No Wheezing, No Hemoptysis, No Pleuritic Pain, No Sputum, No Other Gastrointestinal: No Nausea, No Vomiting, No Abdominal Pain, No Diarrhea, No Constipation, No Melena, No Hematochezia, No Other Genitourinary: No Dysuria, No Frequency, No Incontinence, No Hematuria, No Retention, No Other Musculoskeletal: No other, neck pain due to arm sling, bilateral shoulder pain, arm pain, worse on the right side. Right foot pain. No back pain, No hand pain, No leg pain, Skin: No Rash, No Lesions, No Jaundice, No Bruising, No Other Allergies: Baby Aspirin (Allergy, Unknown, 09/20/20). Physical Exam: General Appearance: Mild distress due to pain, awake and alert. Head Exam: There is located swollen area over the left eyebrow, tender to the touch. Neck Exam: Normal inspection. Non-tender. Normal alignment, normal ROM. Pulmonary/Respiratory: Chest tender on the touch on the right. Clear bilateral breath sounds, no crackles, no wheezing, no crepitus, no fail chest. Cardiovascular/Chest: Regular rate and rhythm. No murmurs. No JVD. Peripheral Pulses: 2+ Radial (R). 2+ Radial (L). 2+ Pedal (R). 2+ Pedal (L) Abdominal Exam: Normal bowel sounds. Soft. normal abdomen, no visible veins, Nontender. No hepatospenomegaly. No masses Left Upper extremities: minimal left shoulder and elbow pain. Right Shoulder: Wearing a arm sling. There is a deformity on the right shoulder, with swelling, tenderness to light touch, ROM limited due to pain. Right Upper Arm: Pain with palpation and movement over the right elbow. Decreased strength, intact sensory. Radial pulses palpable. Right hand has no deformity, is no tender to the touch, normal range of motion limited due to pain in elbow and shoulder, radial pulse is palpable at level of the wrist, reduced strength Lower extremities: pain on the right foot, no deformities. Neuro/Mental Status: A&O x4. Coherent. Thoughts/Psych: Normal thought pattern. Appropriate mood and affect. Consults/Reason for consult Orthopedics: bilateral Humerus fracture Operations or Procedures PROCEDURE(s): RHUM - R HUMERUS XRAY REASON: RIGHT ARM PAIN ORDER NUMBER(s): [id number], ACCESSION NUMBER(s): [id number] EXAM: XY R HUMERUS XRAY INDICATION: RIGHT ARM PAIN TECHNIQUE: 2 views of the right humerus COMPARISON: XY BONE DENSITY APPENDICULAR on DOS: 10/09/23 FINDINGS/IMPRESSION: Proximal humeral diaphyseal, significantly displaced surgical neck fracture with intra-articular extension. 1 shaft width medial displacement of the distal fragment. Diffusely decreased bone mineral density. ATED BY: HI MAHAN MD DICTATED DATE/TIME: 04/06/251901 ORDERING PHYSICIAN: OLGA RINCON DO PROCEDURE(s): RSHD2 - R SHOULDER 2+ VIEW XRAY REASON: fall ORDER NUMBER(s): [id number], ACCESSION NUMBER(s): [id number] EXAM: XY R SHOULDER 2+ VIEW XRAY INDICATION: Pain fall TECHNIQUE: 3 views of the right shoulder COMPARISON: None available at the time of dictation. FINDINGS/IMPRESSION: Significantly displaced comminuted surgical neck fracture of the right proximal humerus with 1 shaft width medial displacement of the distal humeral fragment. Suspected small right glenohumeral joint effusion. Possible right lateral 7th rib fracture. ATED BY: HI MAHAN MD DICTATED DATE/TIME: 04/06/251901 PROCEDURE(s): RRIBS - R RIB XRAY REASON: fall ORDER NUMBER(s): [id number], ACCESSION NUMBER(s): [id number] EXAMINATION: XY R RIB XRAY INDICATION: fall COMPARISON: XY R HUMERUS XRAY on DOS: 04/06/25, XY R SHOULDER 2+ VIEW XRAY on DOS: 04/06/25, XY CHEST TWO VIEWS ROUTINE on DOS: 09/16/23 TECHNIQUE: Frontal view of the chest and 1-view of the right ribs history FINDINGS: No focal consolidation, pleural effusion or significant pneumothorax. Normal cardiomediastinal silhouette. No displaced right rib fracture. Comminuted proximal humeral fracture. IMPRESSION: No acute cardiopulmonary disease. Comminuted proximal humeral fracture. ATED BY: HODAN LEE MD DICTATED DATE/TIME: 04/06/252101 PROCEDURE(s): HWOCT - HEAD WITHOUT CONTRAST REASON: Status post mechanical fall, Head trauma ORDER NUMBER(s): [id number], ACCESSION NUMBER(s): [id number] CLINICAL HISTORY: Status post mechanical fall, Head trauma TECHNIQUE: Helical scanning was performed of the head from the skull base to the vertex. Multiplanar reconstructions were performed. This exam was performed according to our departmental dose optimization program. Up-to-date CT equipment and radiation dose reduction techniques are utilized as appropriate. CTDI 54 DLP 1077 COMPARISON: CT HEAD WITHOUT CONTRAST on DOS: 04/04/23 FINDINGS: There is no evidence for acute intracranial hemorrhage, acute ischemic changes, mass, mass effect, or extra-axial fluid collection. There is no hydrocephalus or midline shift. There is no effacement of the cerebral sulci and basal subarachnoid cisterns. The reeves-white matter differentiation is well maintained. The imaged paranasal sinuses are clear. IMPRESSION: NO ACUTE INTRACRANIAL ABNORMALITY SEEN. ATED BY: NAGI IGLESIAS MD DICTATED DATE/TIME: 04/07/25 0932 PROCEDURE(s): CXRP - CHEST PORTABLE REASON: preoperative assessment ORDER NUMBER(s): [id number], ACCESSION NUMBER(s): [id number] INDICATION: preoperative assessment TECHNIQUE: Frontal view of the chest. COMPARISON: NM CARDIOLITE MULTIPLE on DOS: 06/28/24, XY CHEST TWO VIEWS ROUTINE on DOS: 09/16/23, US ECHO 2D MODE CARDIAC DOP on DOS: 09/08/23 FINDINGS: Left-sided pacemaker.. The heart and mediastinal contours are grossly unremarkable. There is no evidence of pleural disease. The lungs are clear. Comminuted and displaced fracture proximal right humeral neck. IMPRESSION: 1. No evidence of acute disease. 2. Comminuted and displaced fracture proximal right humeral neck ATED BY: HODAN LEE MD DICTATED DATE/TIME: 04/07/25 0857 PROCEDURE(s): LELB - L ELBOW 2 VIEW XRAY REASON: left elbow pain s/p fall ORDER NUMBER(s): [id number], ACCESSION NUMBER(s): [id number] CLINICAL INDICATION: left elbow pain s/p fall TECHNIQUE: XY L ELBOW 2 VIEW XRAY Comparison: XY R HUMERUS XRAY on DOS: 04/06/25 FINDINGS/IMPRESSION: : There is no evidence of acute fracture or dislocation. Soft tissues are unremarkable. ATED BY: LUIS MARTINO MD DICTATED DATE/TIME: 04/08/25 0636 PROCEDURE(s): RFOT2 - R FOOT 2 VIEW XRAY REASON: right foot pain s/p fall ORDER NUMBER(s): [id number], ACCESSION NUMBER(s): [id number] CLINICAL INDICATION: right foot pain s/p fall TECHNIQUE: XY R FOOT 2 VIEW XRAY Comparison: None FINDINGS/IMPRESSION: : There is no evidence of acute fracture or dislocation. Soft tissues are unremarkable. ATED BY: LUIS MARTINO MD DICTATED DATE/TIME: 04/08/25 0637 PROCEDURE(s): LSHD2 - L SHOULDER 2+ VIEW XRAY REASON: left shoulder pain s/p fall ORDER NUMBER(s): [id number], ACCESSION NUMBER(s): [id number] CLINICAL INDICATION: left shoulder pain s/p fall TECHNIQUE: XY L SHOULDER 2+ VIEW XRAY Comparison: XY R HUMERUS XRAY on DOS: 04/06/25, XY R SHOULDER 2+ VIEW XRAY on DOS: 04/06/25 FINDINGS/IMPRESSION: : Minimally displaced fracture of the humeral head and greater tuberosity. Moderate degenerative changes of the glenohumeral and acromioclavicular joints. Soft tissues are unremarkable. Left anterior chest wall cardiac pacing device. ATED BY: LUIS MARTINO MD DICTATED DATE/TIME: 04/08/25 PROCEDURE(s): LSHCT - CT L SHOULDER WO CONTRAST REASON: possible left shoulder fracture ORDER NUMBER(s): [id number], ACCESSION NUMBER(s): [id number] EXAM: CT CT L SHOULDER WO CONTRAST HISTORY: possible left shoulder fracture COMPARISON: None TECHNIQUE: Noncontrast axial CT images of the left shoulder were performed. Sagittal and coronal reformatted images were obtained. This CT exam was performed using one or more of the following dose reduction techniques: Automated exposure control, adjustment of the mA and/or kV according to patient size, or use of iterative reconstruction technique. CT Dose: CTDI volume is 47 mGy. Dose-length product is 06/01/2001 mGy*cm. FINDINGS: There is a nondisplaced fracture in the region of the greater tuberosity of the proximal right humerus. Articular surfaces of the glenohumeral joint are smooth. Articular surfaces of the acromioclavicular joint are smooth. Intact upper left ribs. IMPRESSION: 1. Nondisplaced fracture greater tuberosity proximal left humerus Condition at Discharge: Stable Final Diagnosis/Problems List #Acute surgical neck fracture of the right proximal humerus due to mechanical fall #Possible acute small right glenohumeral joint effusion due to mechanical fall #Acute right lateral rib fracture due to #Acute Left Humerus no displaced fracture due to mechanical fall #Possible acute bacteremia, with neutrophilia #Chronic Osteoporosis #Chronic hypertensive heart disease with systolic/diastolic failure #Chronic Hypothyroidism #Chronic Dyslipidemia #Chronic GERD #Obesity, BMI 30.4 kg/m2 Discharge Disposition: Home with Health Services SNF Discharge Will this Physician continue t: No Discharge Instruct/Medications Diet: Cardiac 2g Na,low cholest Activity: Light activity Follow Up/Referral: F/U with orthopedics: Dr. Baron in 1 week F/U with PCP dr. Esquivel in one week Medications: Tramadol 50mg po Q8h prn for pain Cephalexin (Keflex Capsule), 500 MG PO TID Continue with home medications as below: Scheduled Atorvastatin Calcium (Lipitor), 1 TAB PO QPM, (Reported) Cephalexin (Keflex Capsule), 500 MG PO TID Cholecalciferol (Vitamin D3), 5,000 UNIT PO DAILY, (Reported) Ezetimibe (Ezetimibe), 10 MG PO DAILY, (Reported) Levothyroxine Sodium (Levothyroxine Sodium), 50 MCG PO QAM, (Reported) Pantoprazole Sodium Sesquihydr (Pantoprazole Sodium), 40 MG PO BID@0600,1700 Sucralfate (Sucralfate), 1 GM PO QIDACHS Scheduled PRN Ondansetron Odt 4MG Tab (Zofran Po), 4 MG PO Q4HP PRN Tramadol HCl (Tramadol HCl), 50 MG PO Q8HP PRN Miscellaneous Medications Pantoprazole Sodium (Pantoprazole Sodium), 40 MG IV, (Reported) Sucralfate (Carafate), 1 GM OR, (Reported) Discharge Statement: "Patient was advised to return to the ER or call 911 if any headaches, dizziness, shortness of breath, chest pain, abdominal pain, bleeding, fevers, or worsening of medical condition. Patient was counseled about treatment plan, medications, possible side effects, patientverbalized understanding. All questions were answered to the best of my ability. This discharge took greater then 30 minutes in planning, reviewing documentation, counseling the patient, and discussing with other team members." ASSESSMENT ASSESSMENT Assessment #Acute surgical neck fracture of the right proximal humerus due to mechanical fall #Possible acute small right glenohumeral joint effusion due to mechanical fall #Acute right lateral rib fracture due to #Acute Left Humerus no displaced fracture due to mechanical fall #Possible acute bacteremia, with neutrophilia #Chronic Osteoporosis #Chronic hypertensive heart disease with systolic/diastolic failure #Chronic Hypothyroidism #Chronic Dyslipidemia #Chronic GERD #Obesity, BMI 30.4 kg/m2 Goals of care discussed with the patient > 35 min. Discussed plan of care with Code status: Full code PCP: Alvin and he is her cardiology as well. Orthopedic: Dr. Garza Plan discussed with: Patient and daughter, the patient agrees with the discharge plan. Date of Service: Apr 10, 2025 Billing Provider: REFUGIO SHANKAR MD Common Visit Codes: 80447-CYA/OBS DISCH DAY >30min PRISCILLA BLACKWOOD RESIDENT Apr 10, 2025 16:25
[2025-04-10 17:00] VITALS: BP 131/71; PULSE 94; RESP 17; TEMP 98; O2SAT 97
[2025-04-10] MEDS ORDERED: HYDR-4902 PO (19:16)
== END 2025-04-10 19:46 | disposition home health service (06) | DRG 562 ==
LOC: EDBD 17:52 → ER 17:58 → OVERFLOW 22:11 → TELE-EAST 04-07 15:53 → EAST 04-08 20:48
PROVIDERS: ADMIT Internal Medicine; ATTEND Internal Medicine
DX: S42.291A Other displaced fracture of upper end of right humerus, initial encounter for closed fracture (principal); J96.00 Acute respiratory failure, unspecified whether with hypoxia or hypercapnia; R78.81 Bacteremia; I50.42 Chronic combined systolic (congestive) and diastolic (congestive) heart failure; I49.5 Sick sinus syndrome; D72.0 Genetic anomalies of leukocytes; S22.31XA Fracture of one rib, right side, initial encounter for closed fracture; R65.10 Systemic inflammatory response syndrome (SIRS) of non-infectious origin without acute organ dysfunction; I11.0 Hypertensive heart disease with heart failure; E03.9 Hypothyroidism, unspecified; E66.9 Obesity, unspecified; Z68.30 Body mass index [BMI] 30.0-30.9, adult; E78.5 Hyperlipidemia, unspecified; Z20.822 Contact with and (suspected) exposure to COVID-19; K21.9 Gastro-esophageal reflux disease without esophagitis; M81.0 Age-related osteoporosis without current pathological fracture; M25.411 Effusion, right shoulder; Z88.0 Allergy status to penicillin; Z79.899 Other long term (current) drug therapy; Z86.73 Personal history of transient ischemic attack (TIA), and cerebral infarction without residual deficits; W01.0XXA Fall on same level from slipping, tripping and stumbling without subsequent striking against object, initial encounter; Y93.89 Activity, other specified; Y92.89 Other specified places as the place of occurrence of the external cause; Y99.8 Other external cause status
CPT/HCPCS: 36415; 70450; 71045; 71101; 73030; 73060; 73070; 73200; 73620; 80053; 80061; 80307; 81001; 82306; 82607; 83036; 83735; 84443; 85025; 85610; 85730; 86850; 86900; 86901; 87040; 87086; 87426; 87804; 96374; 96375; 97116; 97163; 97530; G0378; J2405